=== PATIENT | male | born 1960 | race Caucasian/White ===

== ENCOUNTER → 2023-05-03 12:16 | Outpatient (REF) | payer OTHER, SELFPAY | LOC: PAVMRI 12:16 | PROVIDERS: ATTENDING PHYSICIAN Psychiatry & Neurology Neurology; FAMILY PHYSICIAN Nurse Practitioner Family | DX: M54.50 Low back pain, unspecified (principal); M54.17 Radiculopathy, lumbosacral region | CPT/HCPCS: 72158; A9575 ==

== ENCOUNTER → 2023-05-10 10:16 | Outpatient (REF) | payer OTHER, SELFPAY | LOC: RAD 10:16 | PROVIDERS: ATTENDING PHYSICIAN Psychiatry & Neurology Neurology; FAMILY PHYSICIAN Nurse Practitioner Family | DX: M25.551 Pain in right hip (principal) | CPT/HCPCS: 73523 ==

== ENCOUNTER 2023-08-21 00:16 | Emergency (ER) | payer OTHER, SELFPAY ==
[2023-08-21 00:22] VITALS: BP 154/72
[2023-08-21 00:32] LABS: Glucose - Point of Care 108 mg/dl (70-99)
[2023-08-21 00:39] VITALS: BP 142/68
[2023-08-21 01:00] VITALS: BP 148/72
--- NOTE | 2023-08-21 01:18 | ED.GENMED ---
History of Present Illness
General
Chief Complaint: Blood Sugar Problem
Source: patient
Exam Limitations: none
Time Seen by Provider: 08/21/23 01:00
History of Present Illness
History of Present Illness:
See MDM
Past History
Past History
ED Past Medical History: CVA (suggested right face through leg weakness), GERD, HTN, Hypercholesterolemia, NIDDM, Psychiatric (Depression), Other (Neuropathy in legs) and Other (Cervical and lumbar DJD, chronic neck and back pain)
ED Past Surgical History: Orthopedic (Cervical fusion times 2, most recent done in July 2020, C3-6 laminectomy July 2020)
Social History
Tobacco: Former smoker
Alcohol: Daily
Drug: None
Personal:
Living: with family
Employment: Employed
Family History
Family History: Other (reviewed and Noncontributory)
Phy Exam
Physical Exam
Physical Exam:
See MDM
Course
Orders/Labs/Results
Orders:
Orders
08/21/23 00:25
Accucheck Once [Bedside Glucose Monitoring-ONCE] As Directed
08/21/23 01:43
B-Hydroxybutyrate Urgent
CMP [Comprehensive Metabolic Panel] Urgent
Complete Blood Count/With Diff Urgent
Abnormal Lab Results
08/21/23 08/21/23 08/21/23
00:30 01:40 01:43
RBC 4.05 L 10^6/uL
(4.70-6.10)
Hct 37.6 L %
(39.0-52.0)
MCH 33.1 H pg
(27.0-31.0)
Abs Immat Gran (auto) 0.1 H 10^3/uL
(0-0.05)
Absolute Monos (auto) 1.0 H 10^3/uL
(0.1-0.6)
Immature Gran % 1.2 H %
(0-0.5)
Monocytes % 16.5 H %
(1.7-9.3)
Sodium 128 L mmol/L
(135-145)
Chloride 94 L mmol/L
(98-107)
Carbon Dioxide 21 L mmol/L
(22-30)
Glucose 141 H mg/dl
(70-99)
POC Glucose 108 H mg/dl 148 H mg/dl
(70-99) (70-99)
08/21/23 01:43
08/21/23 01:43
Vital Signs
Initial and Last Documented VS:
Initial Vital Signs
Pulse Resp BP Pulse Ox
64 22 154/72 97
08/21/23 00:22 08/21/23 00:22 08/21/23 00:22 08/21/23 00:22
Last Documented Vital Signs
Pulse Resp BP Pulse Ox
65 16 148/72 96
08/21/23 01:47 08/21/23 01:47 08/21/23 01:00 08/21/23 01:45
MDM/Problems Addressed
Differential Diagnosis Includes:
HPI and MDM Narrative:
63-year-old male presenting for evaluation of low blood sugar. His monitor BP because his blood sugar was less than 40. His woke him up and started giving him sugar. On arrival, his blood sugar is now starting to improve. Patient has been
on glimepiride and Janumet. Because he needs his hemoglobin A1c lower before getting back surgery, his PCP placed him on Lantus. Since then, patient has had intermittent low blood sugar but denies any symptoms
On exam, he is well-appearing nontoxic. His showed me his monitor and his blood sugar is now slowly improving. He has PCP appointment later in the morning
Physical exam
General: Well appearing and non-toxic
HEENT: protecting airway
Neck: appears supple
CV: No evidence of cyanosis
Resp: No accessory muscle use
Abd: Non-distended
Extremities: No deformities
Neuro: alert
Psych: Normal affect
Skin: Intact
Problems Addressed including Acute and Chronic Conditions affecting care:
1. Hypoglycemia
Acuity: acute
Prognosis: stable
Details: Likely in setting of insulin use. Will continue to monitor to ensure that the blood sugar is slowly improving.
Updates
Blood sugar remaining within normal limits. On recheck, blood sugar in the 120s on his monitor. Patient remains well-appearing and nontoxic and denies any complaints. Discussed holding the glimepiride this morning until seeing his PCP at his
11:00 appointment
Differential Diagnosis (but not limited to): Adverse medication reaction, hypoglycemia
Testing considered:
Drug therapy (if applicable): OTC meds, please see d/c instruction regarding Rx drugs
Amount and/or Complexity of Data Reviewed
Clinical info obtained from: Patient
External data reviewed: N/A
Labs I independently reviewed (but not limited to): Mild hyponatremia which states is normal for him
Radiology: N/A
Pulse Ox: not hypoxic
EKG independently reviewed: N/A
Histologic Technician: N/A
Critical Care: N/A
Risk of Complication:
Social Determinants of health: Good social support
Discussed with other providers: N/A
Escalation of Care includes Admit/Obs: After being observed in the Emergency Department, pt stable for discharge.
Occasional wrong word or 'sound a like' substitutions may have occurred due to the inherent limitations of voice recognition software. Read the chart carefully and recognize, using context, where substitutions have occurred.
*Critical Care Note
Total Time (30-74mins, 75-104mins- exclusive of procedures): Not Applicable
ED Attending Note
-
Portions of this chart may have been created with voice recognition software.� Occasional wrong word or��sound alike� substitutions may have occurred due to the inherent limitations of voice recognition software.
Discharge Plan
Departure
Patient Disposition: Home (Routine Discharge)
Date of Disposition: 08/21/23
Time of Disposition: 02:42
Patient with high blood pressure during this ER visit?: Yes
Discharge Problem:
Hypoglycemia, Hyponatremia
Prescriptions:
No Action
esomeprazole magnesium [Nexium] 20 MG capsule,delayed release(DR/EC)
20 mg PO DAILY
tadalafil 5 MG tablet
5 mg PO HS
[id number]-[id number]-bxnuxsy-ast [krill oil] 1 EACH capsule
1 ea PO DAILY
metoprolol succinate 25 MG tablet extended release 24 hr
25 mg PO HS
sitagliptin phos-metformin [Janumet XR] 1 EACH tablet, ER multiphase 24 hr
2 tab PO HS
thiamine HCl (vitamin B1) 100 MG tablet
100 mg PO DAILY
furosemide 40 MG tablet
40 mg PO DAILY Qty: 30 0RF
cyanocobalamin (vitamin B-12) 1,000 MCG tablet
1,000 mcg PO DAILY Qty: 30 0RF
tamsulosin 0.4 MG capsule
0.4 mg PO DAILY Qty: 30 0RF
folic acid 1 MG tablet
1 mg PO DAILY Qty: 30 0RF
glimepiride 2 MG tablet
2 mg PO BID AT 0800,1700 Qty: 60 0RF
Activity Restrictions/Additional Instructions:
Please return for any worsening symptoms.
You may return at any time if you have further concerns.
Please hold the glimepiride this morning and keep the primary care appointment today.
Thank you for choosing [facility].
Interventions
Interventions:
*Risk Screen - Suicide Last Done: 08/21/23 00:22
*Neglect/Abuse Screening Last Done: 08/21/23 00:22
ED- Fall Risk Assessment Last Done: 08/21/23 01:40
ED- Neurological Assessment Last Done: 08/21/23 01:40
Discharge Date and Time
Print Language: PALESTINIAN
[2023-08-21 01:46] VITALS: BMI 29.7
[2023-08-21 01:46] LABS: Glucose - Point of Care 148 mg/dl (70-99)
[2023-08-21 01:50] LABS: % Basophils 0.7 % (0-2); % Eosinophils 1.4 % (0-6); % Immature Granulocytes 1.2 % (0-0.5); % Lymphocytes 21.3 % (20.5-51.1); % Monocytes 16.5 % (1.7-9.3); % Neutrophils 58.9 % (42.2-75.2); Absolute Eosinophils 0.1 10^3/uL (0-0.7); Absolute Immature Granulocytes 0.1 10^3/uL (0-0.05); Absolute Lymphocytes 1.3 10^3/uL (1.2-3.4); Absolute Neutrophils 3.5 10^3/uL (1.4-6.5); Hematocrit 37.6 % (39.0-52.0); Hemoglobin 13.4 g/dL (13.0-18.0); Mean Corp Hgb Conc. 35.6 g/dL (33.0-37.0); Mean Corpuscular Hgb 33.1 pg (27.0-31.0); Mean Corpuscular Volume 92.8 fL (80.0-94.0); Mean Platelet Volume 9.7 fL (7.4-10.4); Nucleated Red Blood Cells % 0 % (-); Platelet Count 136 10^3/uL (130-400); Red Blood Cell Count 4.05 10^6/uL (4.70-6.10); Red Cell Dist. Width 12.8 % (11.5-14.5); White Blood Cell Count 5.9 10^3/uL (4.8-10.8)
[2023-08-21 02:00] VITALS: BP 141/64
[2023-08-21 02:08] LABS: ALT (SGPT) 28 U/L (0-50); AST (SGOT) 40 U/L (17-59); Albumin 4.4 g/dl (3.5-5.0); Alkaline Phosphatase 125 U/L (38-126); Blood Urea Nitrogen 13 mg/dl (9-20); Calcium 9.7 mg/dl (8.4-10.2); Carbon Dioxide 21 mmol/L (22-30); Chloride 94 mmol/L (98-107); Estimated Creatinine Clearance 87 ml/min; Glucose 141 mg/dl (70-99); Potassium 4.5 mmol/L (3.5-5.1); Sodium 128 mmol/L (135-145); Total Bilirubin 1.1 mg/dl (0.2-1.3); eGFR > 60.00
[2023-08-21 02:41] LABS: B-Hydroxybutyrate 0.19 mmol/L (0.02-0.27)
[2023-08-21 02:58] VITALS: BP 160/74
== END 2023-08-21 02:50 | disposition home or self-care (01) ==
LOC: EMR 00:16
PROVIDERS: EMERGENCY PHYSICIAN Student in an Organized Health Care Education/Training Program; FAMILY PHYSICIAN Nurse Practitioner Family
DX: E11.649 Type 2 diabetes mellitus with hypoglycemia without coma (principal); E87.1 Hypo-osmolality and hyponatremia; K21.9 Gastro-esophageal reflux disease without esophagitis; I10 Essential (primary) hypertension; E78.00 Pure hypercholesterolemia, unspecified; F32.A Depression, unspecified; E11.40 Type 2 diabetes mellitus with diabetic neuropathy, unspecified; M47.816 Spondylosis without myelopathy or radiculopathy, lumbar region; M47.812 Spondylosis without myelopathy or radiculopathy, cervical region; G89.29 Other chronic pain; M43.22 Fusion of spine, cervical region; Z87.891 Personal history of nicotine dependence; Z88.8 Allergy status to other drugs, medicaments and biological substances
CPT/HCPCS: 99283; 80053; 82010; 82962; 85025

== ENCOUNTER 2023-08-31 03:16 | Emergency (ER) | payer OTHER, SELFPAY ==
[2023-08-31] VITALS (9 sets, daily range): BP systolic 140–207; BP diastolic 72–95; BMI 31.3
--- NOTE | 2023-08-31 03:53 | ED.GENMED ---
History of Present Illness
<NAYAN Murdock - Last Filed: 08/31/23 06:58>
General
Chief Complaint: Anxiety
Source: patient
Exam Limitations: none
Time Seen by Provider: 08/31/23 03:52
Nursing documentation reviewed up to this point in time: agreed with
History of Present Illness
History of Present Illness:
63 year old male presents for evaluation of anxiety. Pt is undergoing back surgery on 09/02; pain was previously controlled on NSAIDs but due to timeline of upcoming surgery pt is no longer permitted to take NSAIDs. He reports that he took one
hydrocodone/acetaminophen 10/325 tablet which he had left over from a prior surgery at approximately 21:00 on 08/29, and notes that he then awoke at approximately 01:00 on 08/30 with anxiety and a sensation of 'wanting to jump out of my skin.' Pt also
reports intermittent mild dizziness and an 'empty' sensation in the epigastric region of his abdomen. Pt does have a hx of panic attacks per his , but was never prescribed medication. Last panic attack was approximately 3 years ago per . Pt
also believes that he had a similar reaction the last time he took an opiate several years ago. He denies CP, SOB, COWAN, vision change, fever, chills, N/V, diaphoresis, palpitations, and syncope.
Past History
<NAYAN Murdock - Last Filed: 08/31/23 06:58>
Past History
ED Past Medical History: CVA (suggested right face through leg weakness), GERD, HTN, Hypercholesterolemia, NIDDM, Psychiatric (Depression), Other (Neuropathy in legs) and Other (Cervical and lumbar DJD, chronic neck and back pain)
ED Past Surgical History: Orthopedic (Cervical fusion times 2, most recent done in July 2020, C3-6 laminectomy July 2020)
Social History
Tobacco: Former smoker
Alcohol: Daily
Drug: None
Personal:
Living: with family
Employment: Employed
Family History
Family History: Other (reviewed and Noncontributory)
Review of Systems
<NAYAN Murdock - Last Filed: 08/31/23 06:58>
Review of Systems
Allergies reviewed?: Yes
Constitutional: Reports no symptoms
EENT: Reports no symptoms
Respiratory: Reports no symptoms
Cardiac: Reports no symptoms
ABD/GI: Reports other (epigastric discomfort )
: Reports no symptoms
Musculoskeletal: Reports no symptoms
Skin: Reports no symptoms
Neurological: Reports dizzy (intermittent )
Endocrine: Reports no symptoms
Hematologic/Lymphatic: Reports no symptoms
Psychiatric: Reports anxiety
Phy Exam
<NAYAN Murdock - Last Filed: 08/31/23 06:58>
General Physical Exam
General Presentation: well appearing
General age: appears stated age
General Skin: warm
General Habitus: obese
General Mental: anxious
General Hydration: appears well hydrated
Cardiovascular Exam
Cardiovascular Exam: regular rate/rhythm, no edema, no JVD and no murmur
Pulmonary Exam
Pulmonary Exam: lungs clear and no respiratory distress
Gastrointestinal Exam
Gastrointestinal Exam: normal bowel sounds and non tender
Neurological Exam
Neurological Exam: alert and oriented x3
Psychiatric Exam
Psychiatric Exam: anxious
Course
<NAYAN Murdock - Last Filed: 08/31/23 06:58>
Orders/Labs/Results
Orders:
Orders
08/31/23 04:00
Electrocardiogram (*1) Urgent
Reason for Study: Other
Other Reason for Exam: HTN and anxiety
08/31/23 04:04
Urinalysis Reflex To Culture Urgent
08/31/23 04:26
Complete Blood Count/With Diff Urgent
Comprehensive Metabolic Panel Urgent
Troponin I Urgent
08/31/23 04:52
Oxycodone [Roxicodone] 5 mg PO NOW STA
08/31/23 04:53
Ondansetron Orally Disint [Zofran Odt (Orally Disintegrating)] 4 mg PO NOW STA
08/31/23 06:13
0.9% Sodium Chloride 1000 ml [Nss] 1,000 ml IV BOLUS
08/31/23 06:37
BMP [Basic Metabolic Panel] Urgent
Abnormal Lab Results
08/31/23
04:26
RBC 3.96 L 10^6/uL
(4.70-6.10)
Hct 37.1 L %
(39.0-52.0)
MCH 33.8 H pg
(27.0-31.0)
Abs Immat Gran (auto) 0.1 H 10^3/uL
(0-0.05)
Absolute Lymphs (auto) 1.0 L 10^3/uL
(1.2-3.4)
Absolute Monos (auto) 0.8 H 10^3/uL
(0.1-0.6)
Immature Gran % 1.1 H %
(0-0.5)
Lymphocytes % 13.6 L %
(20.5-51.1)
Monocytes % 10.8 H %
(1.7-9.3)
Sodium 122 L mmol/L
(135-145)
Chloride 87 L mmol/L
(98-107)
Glucose 212 H mg/dl
(70-99)
Alkaline Phosphatase 139 H U/L
(38-126)
08/31/23 04:26
Vital Signs
Initial and Last Documented VS:
Initial Vital Signs
Temp Pulse Resp BP Pulse Ox
97.8 F 56 18 207/95 94
08/31/23 03:21 08/31/23 03:21 08/31/23 03:21 08/31/23 03:21 08/31/23 03:21
Last Documented Vital Signs
Temp Pulse Resp BP Pulse Ox
97.8 F 61 20 140/80 99
08/31/23 03:21 08/31/23 06:30 08/31/23 06:30 08/31/23 06:30 08/31/23 06:30
<Antonio Llanos, - Last Filed: 08/31/23 06:13>
Orders/Labs/Results
Orders:
Orders
08/31/23 04:00
Electrocardiogram (*1) Urgent
Reason for Study: Other
Other Reason for Exam: HTN and anxiety
08/31/23 04:04
Urinalysis Reflex To Culture Urgent
08/31/23 04:26
Complete Blood Count/With Diff Urgent
Comprehensive Metabolic Panel Urgent
Troponin I Urgent
08/31/23 04:52
Oxycodone [Roxicodone] 5 mg PO NOW STA
08/31/23 04:53
Ondansetron Orally Disint [Zofran Odt (Orally Disintegrating)] 4 mg PO NOW STA
08/31/23 06:13
0.9% Sodium Chloride 1000 ml [Nss] 1,000 ml IV BOLUS
08/31/23 06:37
BMP [Basic Metabolic Panel] Urgent
Abnormal Lab Results
08/31/23
04:26
RBC 3.96 L 10^6/uL
(4.70-6.10)
Hct 37.1 L %
(39.0-52.0)
MCH 33.8 H pg
(27.0-31.0)
Abs Immat Gran (auto) 0.1 H 10^3/uL
(0-0.05)
Absolute Lymphs (auto) 1.0 L 10^3/uL
(1.2-3.4)
Absolute Monos (auto) 0.8 H 10^3/uL
(0.1-0.6)
Immature Gran % 1.1 H %
(0-0.5)
Lymphocytes % 13.6 L %
(20.5-51.1)
Monocytes % 10.8 H %
(1.7-9.3)
Sodium 122 L mmol/L
(135-145)
Chloride 87 L mmol/L
(98-107)
Glucose 212 H mg/dl
(70-99)
Alkaline Phosphatase 139 H U/L
(38-126)
08/31/23 04:26
Vital Signs
Initial and Last Documented VS:
Initial Vital Signs
Temp Pulse Resp BP Pulse Ox
97.8 F 56 18 207/95 94
08/31/23 03:21 08/31/23 03:21 08/31/23 03:21 08/31/23 03:21 08/31/23 03:21
Last Documented Vital Signs
Temp Pulse Resp BP Pulse Ox
97.8 F 61 20 140/80 99
08/31/23 03:21 08/31/23 06:30 08/31/23 06:30 08/31/23 06:30 08/31/23 06:30
<NAYAN Murdock - Last Filed: 08/31/23 06:58>
MDM/Problems Addressed
Differential Diagnosis Includes:
Medication reaction, anxiety, panic attack, IN.
<NAYAN Murdock - Last Filed: 08/31/23 06:58>
*Critical Care Note
Total Time (30-74mins, 75-104mins- exclusive of procedures): Not Applicable
<NAYAN Murdock - Last Filed: 08/31/23 06:58>
Update Note
Update Note:
05:35 - Troponin I within normal limits
05:43 - Pt reports significant improvement in his sx after receiving oxycodone 5mg and Zofran 4mg. No current anxiety or abdominal pain reported.
06:17 - Spoke with pt regarding sodium of 122. Pt is amenable to receiving fluids.
ED Attending Note
<NAYAN Murdock - Last Filed: 08/31/23 06:58>
-
Portions of this chart may have been created with voice recognition software.� Occasional wrong word or��sound alike� substitutions may have occurred due to the inherent limitations of voice recognition software.
<Antonio Llanos DO - Last Filed: 08/31/23 06:13>
ED Attending Note
Patient seen and examined by attending physician: Yes
I performed the substantive portion of visit, reviewed & personally made and approve the management plan that is documented in note by myself or AKIN.: Yes
ED Attending Note:
Pleasant 63-year-old male presents with anxiety and possible medication reaction. Patient is due to undergo spinal surgery by Dr. Palma on Sunday. He has been off NSAIDs in preparation for the surgery. This is causing an exacerbation of his pain.
He had Vicodin at home. He took 1 and has a sensation that he wants to 'jump out of his skin. He states that the last time he took hydrocodone, he had a similar symptom. He denies any other symptoms at this time. Patient was seen in conjunction
with the PA student. I have reviewed and agree with the history and treatment plan presented. On my independent physical exam, patient is awake, alert, and oriented x3 minimal acute distress. No respiratory distress. Moves all 4 extremities.
Discharge Plan
Departure
Patient with high blood pressure during this ER visit?: Yes
Condition: Good
Discharge Problem:
Essential hypertension, Hyponatremia, Type II diabetes mellitus
Instructions: Anxiety, Adult (DC), BLOOD PRESSURE
Prescriptions:
New
oxycodone 5 mg capsule
5 mg PO Q8H PRN (Reason: Pain) Qty: 14 0RF
No Action
esomeprazole magnesium [Nexium] 20 MG capsule,delayed release(DR/EC)
20 mg PO DAILY
tadalafil 5 MG tablet
5 mg PO HS
[id number]-[id number]-orcpmep-ast [krill oil] 1 EACH capsule
1 ea PO DAILY
metoprolol succinate 25 MG tablet extended release 24 hr
25 mg PO HS
sitagliptin phos-metformin [Janumet XR] 1 EACH tablet, ER multiphase 24 hr
2 tab PO HS
thiamine HCl (vitamin B1) 100 MG tablet
100 mg PO DAILY
furosemide 40 MG tablet
40 mg PO DAILY Qty: 30 0RF
cyanocobalamin (vitamin B-12) 1,000 MCG tablet
1,000 mcg PO DAILY Qty: 30 0RF
tamsulosin 0.4 MG capsule
0.4 mg PO DAILY Qty: 30 0RF
folic acid 1 MG tablet
1 mg PO DAILY Qty: 30 0RF
glimepiride 2 MG tablet
2 mg PO BID AT 0800,1700 Qty: 60 0RF
Referrals:
Antonio Muñoz CRNP [Family Provider] -
Interventions
Interventions:
*Risk Screen - Suicide Last Done: 08/31/23 03:21
*General Assessment Last Done: 08/31/23 03:21
*Neglect/Abuse Screening Last Done: 08/31/23 03:21
ED- Fall Risk Assessment Last Done: 08/31/23 03:21
*ED COVID-19 Vaccine History Last Done: 08/31/23 03:21
ED-Psychological Assessment Last Done: 08/31/23 05:02
Discharge Date and Time
Print Language: LATVIAN
[2023-08-31] MEDS: ZOFRAN ODT (ORALLY DISINTEGRATING) 4 MG PO (04:58)
[2023-08-31] MEDS: ROXICODONE 5 MG PO (04:59)
[2023-08-31 05:52] LABS: Hematocrit 37.1 % (39.0-52.0); Hemoglobin 13.4 g/dL (13.0-18.0); Mean Corp Hgb Conc. 36.1 g/dL (33.0-37.0); Mean Corpuscular Hgb 33.8 pg (27.0-31.0); Mean Corpuscular Volume 93.7 fL (80.0-94.0); Red Blood Cell Count 3.96 10^6/uL (4.70-6.10); Red Cell Dist. Width 11.9 % (11.5-14.5); White Blood Cell Count 7.1 10^3/uL (4.8-10.8)
[2023-08-31 05:53] LABS: Mean Platelet Volume 9.8 fL (7.4-10.4); Platelet Count 136 10^3/uL (130-400)
[2023-08-31 05:54] LABS: % Basophils 0.6 % (0-2); % Eosinophils 1.3 % (0-6); % Immature Granulocytes 1.1 % (0-0.5); % Lymphocytes 13.6 % (20.5-51.1); % Monocytes 10.8 % (1.7-9.3); % Neutrophils 72.6 % (42.2-75.2); Absolute Eosinophils 0.1 10^3/uL (0-0.7); Absolute Immature Granulocytes 0.1 10^3/uL (0-0.05); Absolute Monocytes 0.8 10^3/uL (0.1-0.6); Absolute Neutrophils 5.2 10^3/uL (1.4-6.5); Nucleated Red Blood Cells % 0 % (-)
[2023-08-31 06:02] LABS: ALT (SGPT) 28 U/L (0-50); AST (SGOT) 30 U/L (17-59); Albumin 4.3 g/dl (3.5-5.0); Alkaline Phosphatase 139 U/L (38-126); Blood Urea Nitrogen 11 mg/dl (9-20); Calcium 9.1 mg/dl (8.4-10.2); Carbon Dioxide 26 mmol/L (22-30); Chloride 87 mmol/L (98-107); Estimated Creatinine Clearance 112 ml/min; Glucose 212 mg/dl (70-99); Potassium 4.1 mmol/L (3.5-5.1); Sodium 122 mmol/L (135-145); Total Bilirubin 1.2 mg/dl (0.2-1.3); Total Protein 6.9 g/dl (6.3-8.2); eGFR > 60.00
[2023-08-31 06:07] LABS: Troponin I < 0.012 ng/ml
[2023-08-31] MEDS: NSS 1000 IV (06:41)
[2023-08-31 08:25] LABS: Blood Urea Nitrogen 12 mg/dl (9-20); Calcium 8.9 mg/dl (8.4-10.2); Carbon Dioxide 26 mmol/L (22-30); Chloride 90 mmol/L (98-107); Estimated Creatinine Clearance 112 ml/min; Glucose 206 mg/dl (70-99); Potassium 4.5 mmol/L (3.5-5.1); Sodium 124 mmol/L (135-145); eGFR > 60.00
[2023-08-31 08:26] LABS: Urine Character Clear (Clear); Urine Color Yellow; Urine Leukocyte Negative (Negative); Urine Nitrite Negative (Negative)
[2023-08-31 08:27] LABS: Urine Albumin 1+ (Neg - Trace); Urine Bilirubin Negative (Negative); Urine Glucose 3+ (Negative); Urine Ketone 1+ (Negative); Urine Occult Blood Negative (Negative); Urine Urobilinogen Negative (Neg - 1+)
--- NOTE | 2023-08-31 08:29 | EDRN ---
ER provider Moe notified of repeat Na level result
[2023-08-31 08:39] LABS: Urine Red Blood Cell 0-2 /HPF (0-2); Urine White Cell 0-2 /HPF (0-5)
== END 2023-08-31 09:28 | disposition home or self-care (01) ==
LOC: EMR 03:16
PROVIDERS: EMERGENCY PHYSICIAN Student in an Organized Health Care Education/Training Program; FAMILY PHYSICIAN Nurse Practitioner Family
DX: E87.1 Hypo-osmolality and hyponatremia (principal); I10 Essential (primary) hypertension; E11.9 Type 2 diabetes mellitus without complications
CPT/HCPCS: 99284; 96360; 80048; 80053; 81003; 81015; 84484; 85025; 93005

== ENCOUNTER → 2024-04-24 07:47 | Outpatient (REF) | payer OTHER, SELFPAY | LOC: HWRAD 07:47 | PROVIDERS: ATTENDING PHYSICIAN Nurse Practitioner Family; REFERRING PHYSICIAN Internal Medicine Hematology & Oncology | DX: R79.89 Other specified abnormal findings of blood chemistry (principal) | CPT/HCPCS: 76700 ==

== ENCOUNTER 2025-01-01 07:49 | Outpatient (REF) | payer OTHER, SELFPAY | END 2025-01-01 23:59 | disposition home or self-care (01) | LOC: WOUND 07:49 | PROVIDERS: ATTENDING PHYSICIAN Surgery; FAMILY PHYSICIAN Internal Medicine | DX: E10.621 Type 1 diabetes mellitus with foot ulcer (principal); L97.529 Non-pressure chronic ulcer of other part of left foot with unspecified severity; L03.116 Cellulitis of left lower limb; G62.9 Polyneuropathy, unspecified | CPT/HCPCS: 99205 ==

== ENCOUNTER 2025-01-01 13:04 | Inpatient (IN) | payer OTHER, SELFPAY ==
[2025-01-01 08:29] VITALS: BP 179/81
[2025-01-01 08:47] VITALS: BMI 32.4
--- NOTE | 2025-01-01 08:49 | ED.GENMED ---
History of Present Illness
General
Chief Complaint: Skin Problem
Source: patient
Exam Limitations: none
Time Seen by Provider: 01/01/25 08:36
History of Present Illness
History of Present Illness:
See MDM
Past History
Past History
ED Past Medical History: CVA (suggested right face through leg weakness), GERD, HTN, Hypercholesterolemia, NIDDM, Psychiatric (Depression), Other (Neuropathy in legs) and Other (Cervical and lumbar DJD, chronic neck and back pain)
ED Past Surgical History: Orthopedic (Cervical fusion times 2, most recent done in July 2020, C3-6 laminectomy July 2020)
Social History
Tobacco: Former smoker
Alcohol: Daily
Drug: None
Personal:
Living: with family
Employment: Employed
Family History
Family History: Other (reviewed and Noncontributory)
Phy Exam
Physical Exam
Physical Exam:
See MDM
Course
Orders/Labs/Results
Orders:
Orders
01/01/25 08:48
Vancomycin [Vancocin] 2,000 mg 0.9% Sodium Chloride 500 ml [Nss] 500 ml IV NOW
Foot, Left 3 View [CR Foot - Left Min 3 Views] Urgent
Comment:
Reason For Exam: ulceration and pain to distal foot/toes
01/01/25 09:47
Complete Blood Count/With Diff Urgent
Comprehensive Metabolic Panel Urgent
Lactic Acid Q4H
Comment: CANCEL 2nd LACTIC ACID IF 1st LACTIC ACID IS LESS THAN 2
Magnesium Urgent
Comment: ADD ON
Phosphorus Urgent
Comment: ADD ON
Blood Culture Q30M
ANNETTE Source: Blood/Venous
Specimen Description:
01/01/25 Lunch
2000 calorie (17 carb) Diabetic
At Your Request: Full Participation
Does patient need a safe tray?: No
Fluid Restriction: 1200 mL/day (40 oz)
01/01/25 10:08
Blood Culture Q30M
ANNETTE Source: Blood/Venous
Specimen Description:
01/01/25 12:13
UA [Urinalysis] Routine
Date Specimen was Collected: 01/01/25
Time Specimen was Collected: 12:11
Urine Microscopic Routine
Date Specimen was Collected: 01/01/25
Time Specimen was Collected: 12:11
Urine Osmolality Random [Osmolality, Random Urine] Routine
Date Specimen was Collected: 01/01/25
Time Specimen was Collected: 12:11
Urine Sodium Routine
Date Specimen was Collected: 01/01/25
Time Specimen was Collected: 12:11
01/01/25 12:29
Lower Ext Arterial & GUSTAVO US [US Periph Art LOWER Ext w GUSTAVO] Urgent
Comment:
Reason For Exam: left foot gangrenous toes
01/01/25 12:30
Consult Infectious Disease [INFECTIOUS DISEASE CONSULT] Routine
Consulting Provider: Antonio Cornejo
Was physician already notified: Yes
Consult Vascular Surgery [Vascular Surgery Consult] Routine
Consulting Provider: Ike Hoffman
Was physician already notified: Yes
Cefepime HCl [Maxipime] 2,000 mg IV NOW STA
MetroNIDAZOLE 500 MG/100 ML [Flagyl 500 mg] 100 ml IV NOW
01/01/25 12:33
Legs, left US [US Periph Venous LOWER Ext LT] Urgent
Comment:
Reason For Exam: LLE swelling
01/01/25 12:36
Furosemide [Lasix] 20 mg PO NOW STA
01/01/25 12:38
Add On- LAB Routine
Tests Added?: magnesium, phosphorous
01/01/25 12:39
Admit/Transfer Patient As Directed
Co-Sign Provider:
Level of Care: Inpatient admission
Assign to:: Telemetry
Physician / Group: Chelsea Gray
Diagnosis: left foot cellulitis with gangrenous toes
Reason for Telemetry: Other
Other Reason for Telemetry: electrolye imbalances
Date to Stop Telemetry: 01/03/25
Time to Stop Telemetry: 11:00
Reason for Hospitalization: left foot cellulitis with gangrenous toes
Expected length of stay greater than two midnights?: Yes
ELOS- Estimated Length of Stay in days: 3
I certify the patient meets the requirements for IP care: Yes
01/01/25 12:40
PRN Pain Medication Management As Directed
May give lesser potent ordered pain med per pt: Yes
preference::
Protocol:: Medication orders for pain may be administered in a
manner that supports deferring to patient preference
when the pt is:
- Requesting an ordered lesser potent pain medication.
Least to most potent pain medications are defined
as: acetaminophen < NSAID < tramadol < opioids
(morphine, oxycodone, hydromorphone).
- Requesting a lesser dose of the same medication IF
ORDERED.
- Requesting a less intrusive route of administration
if both routes are prescribed by the provider (PO <
IV).
01/01/25 12:42
Code Status As Directed
Resuscitation Status: Full Code
01/01/25 14:30
0.9% Sodium Chloride [Nss (Preservative Free)] See Protocol IV PRN PRN
Acetaminophen [Tylenol] 650 mg PO Q4HPRN PRN
Bisacodyl [Dulcolax] 10 mg RECTAL [id number] PRN
Dextrose 50%-Water [Dextrose 50% Syringe] 12.5 grams IV [id number] PRN
Docusate W/Senna [Senokot-S] 1 tablet PO BIDPRN PRN
FOLic ACID [Folvite] 1 mg 0.9% Sodium Chloride 50 ml [Nss] 50 ml IV DAILYPRN
Glucagon [GlucaGen] 1 mg IM PRN PRN
Lorazepam [Ativan] 1 mg IV Q1HPRN PRN
Lorazepam [Ativan] 1 mg PO Q2HPRN PRN
Lorazepam [Ativan] 2 mg IV Q1HPRN PRN
Polyethylene Glycol Powder [Miralax] 17 grams PO DAILYPRN PRN
VANCOMYCIN Pharmacy to Dose [VANCOCIN Pharmacy to Dose] 1 each Pharmacy To Prepare [Call Pharmacy To Prepare] 0 ml IV PER PROTOCOL
Weight DAILY
Frequency: Daily
01/01/25 14:30
Case Management Consult Once
Case Management Consult: Other
Comment: Substance abuse counseling
DIETARY IP CONSULT Routine
Reason for Consult: Nutrition support, possible refeeding guidelines
Activity As Directed
Activity Level: As Tolerated
Bedside Glucose Monitoring As Directed
Frequency: AC&HS
Additional Instructions:: Change to q6h if pt on TPN, tube feeding or not eating
Intake/ Output As Directed
Frequency: Per unit guidelines
MSAS SCORE As Directed
MSAS Score 0-4: Repeat MSAS every 2 hours until 0-4 for three consecutive assessments, then every 4 hours x 48
hours.
MSAS Score 5-7: For MILD withdrawl symptoms. Repeat MSAS and RASS every 2 hours
MSAS Score 8-11: For MODERATE withdrawal symptoms. Repeat MSAS and RASS every 1 hour. Consider ICU or IMU
level of care.
MSAS Score > 11: For SEVERE withdrawal symptoms. Repeat MSAS and RASS every 1 hour. Notify provider, consider
ICU level of care.
MSAS Additional Instructions: If no improvement or no decrease in score from severe to moderate within 12
hours, consult psychiatry
MSAS Notify Provider: Notify provider if patient requires more than 10 mg of Lorazepam in eight hour period.
Nursing to Place Non Medication Order As Directed
Physician Order: please TT me when evening Na and K results
Above order entered?: Yes
Nursing to Place Non Medication Order As Directed
Physician Order: please elevated LLE on at least 2 pillows
Above order entered?: Yes
Vital Signs As Directed
Frequency: Per unit guidelines
DX Deep Vein Thrombosis Video Routine
01/01/25 16:30
Insulin Aspart Corrective Low [Novolog Flexpen-Low Resistance] See Protocol SC AC
01/01/25 17:00
Glimepiride [Amaryl] 1 mg PO BID AT 0800,1700
01/01/25 17:44
Potassium Routine
Sodium Routine
01/01/25 18:00
Enoxaparin Sodium [Lovenox] 40 mg SC QPM
Metoprolol Xl [Toprol Xl] 25 mg PO QPM
tadalafil See Dose Instructions PO QPM
01/01/25 20:00
Cefepime HCl [Maxipime] 2,000 mg IV Q8H
Cetirizine HCl [Zyrtec] 10 mg PO BID
MetroNIDAZOLE 250 MG/50 ML [Flagyl 250 mg] 50 ml IV Q8H
Thiamine Injection 200 mg IV Q12
01/02/25 06:00
Comprehensive Metabolic Panel IN AM
Glycohemoglobin (HgbA1c) IN AM
Magnesium IN AM
01/02/25 08:00
FOLic ACID [Folvite] 1 mg PO DAILY
Furosemide [Lasix] 20 mg PO DAILY
Pantoprazole [Protonix] 40 mg PO DAILY
Tamsulosin [Flomax] 0.4 mg PO DAILY
01/03/25 11:00
DC Protocol for Telemetry ONCE
01/04/25 20:00
Thiamine HCl [Vitamin B1] 100 mg PO BID
Abnormal Lab Results
01/01/25 01/01/25
09:47 12:13
RBC 4.69 L 10^6/uL
(4.70-6.10)
MCH 31.8 H pg
(27.0-31.0)
Plt Count 115 L 10^3/uL
(130-400)
Absolute Lymphs (auto) 0.8 L 10^3/uL
(1.2-3.4)
Absolute Monos (auto) 0.8 H 10^3/uL
(0.1-0.6)
Lymphocytes % 12.5 L %
(20.5-51.1)
Monocytes % 12.5 H %
(1.7-9.3)
Sodium 124 L mmol/L
(135-145)
Potassium 5.4 H mmol/L
(3.5-5.1)
Chloride 90 L mmol/L
(98-107)
Glucose 234 H mg/dl
(70-99)
Total Bilirubin 1.4 H mg/dl
(0.2-1.3)
Alkaline Phosphatase 189 H U/L
(38-126)
Total Protein 8.5 H g/dl
(6.3-8.2)
Urine Occult Blood 2+ A
(Negative)
Urine RBC 3-6 A /HPF
(0-2)
Urine Osmolality 267 L mOsm/kg
(300-900)
Urine Sodium 15 L mmol/L
(30-90)
Urine Glucose 4+ A
(Negative)
Urine Albumin 3+ A
(Neg - Trace)
01/01/25 09:47
01/01/25 09:47
Vital Signs
Initial and Last Documented VS:
Initial Vital Signs
Temp Pulse Resp BP
98.4 F 64 16 179/81
01/01/25 08:29 01/01/25 08:29 01/01/25 08:29 01/01/25 08:29
Last Documented Vital Signs
Temp Pulse Resp BP Pulse Ox
97.7 F 100 18 123/81 95
01/02/25 03:49 01/02/25 03:49 01/02/25 03:49 01/02/25 03:49 01/02/25 03:49
MDM/Problems Addressed
Differential Diagnosis Includes:
Note:
CHIEF COMPLAINT(S)
Foot ulcers and possible infection.
HISTORY OF PRESENT ILLNESS
The patient is a 64-year-old male presenting with ulcers on the feet, primarily located on the exterior surfaces of all 5 toes, initially noticed after seeing blood on his socks two weeks ago following work. The patient reports numbness and an
inability to feel the affected areas due to neuropathy. The ulcers are described as blistered with evidence of infection. Pulses in the feet were found to be intact and the skin remains warm, indicating good blood flow, which reduces concern for
critical ischemia. There is no reported pain associated with the ulcers due to neuropath. Patient went to wound care for the first time today and sent to the emergency department for admission
PHYSICAL EXAM
General: Alert, no acute distress.
Skin: Warm, dry.
Head: Normocephalic, atraumatic
Neck: Appears supple, trachea midline.
Eyes, Ears, Nose, Mouth, and Throat: Moist mucous membranes
Cardiovascular: No signs of cyanosis
Respiratory: Respirations are non-labored.
Abdomen: Non-distended
Musculoskeletal: Ulceration and cellulitis noted to all 5 toes and dorsum of foot. DP pulse +2. Decree sensation secondary to neuropathy
Neurological: No focal neurological deficit observed.
Psychiatric: Cooperative, appropriate mood and affect.
PLAN
- Obtain blood work to assess for underlying conditions.
- Perform an X-ray of the affected area to rule out underlying bone infection.
- Initiate antibiotic therapy.
- Plan to admit the patient for overnight observation and treatment.
DIFFERENTIAL DIAGNOSIS
The Differential Diagnosis includes, in no particular order and is not limited to:
- Diabetic foot ulcer
- Peripheral neuropathy-related ulcers
- Venous insufficiency ulcers
- Arterial insufficiency ulcers
- Pressure ulcers
- Cellulitis
- Osteomyelitis
- Necrotizing fasciitis
- Gout-related ulcer
- Blistering skin disorders (e.g., pemphigoid)
SUMMARY OF ENCOUNTER
The patient presented with ulcers on the feet, deemed likely infectious and possibly exacerbated by neuropathy and inappropriate footwear. Findings of warm skin and palpable pulses suggestadequate blood flow, allowing the infection to be a primary
focus of treatment. The decision was made to perform further testing and initiate antibiotics, with a planned inpatient stay for observation and management.
DISPOSITION
Admit for overnight observation and management.
MEDICAL DECISION MAKING
-Complexity of Data Reviewed: Chronic conditions affecting care include neuropathy, foot ulcer (possible peripheral vascular issues).
-Data:
Category 1
- Blood work and x-ray ordered to evaluate for bone infection and systemic impact.
-Risk:
No explicit prescription medication management mentioned; administration of antibiotic therapy suggested during inpatient stay, possibly requiring monitoring.
DIAGNOSIS
- Diabetic foot ulcer, primary diagnosis (ICD-10: L97.919)
- Peripheral neuropathy, contributing factor (ICD-10: G62.9)
- Foot ulcer, infectious (ICD-10: L03.116)
SUMMARY OF ENCOUNTER
The patient presented with swelling of the left foot, likely related to irritation from his boots. Examination revealed evidence of cellulitis. Initial lab testing showed mild hyponatremia and mild hyperkalemia. Despite these findings, the clinical
presentation was not consistent with necrotizing fasciitis, given the normal lactic acid levels and the duration of symptoms. Vancomycin was initiated for treatment, and the plan included admitting the patient for further antibiotics and work-up.
DISPOSITION
Admit for antibiotics and further work-up.
ASSESSMENT
Cellulitis of the left foot likely secondary to irritation from boots and requiring antibiotic therapy.
EMERGENCY TREATMENTS ADMINISTERED
Vancomycin was started.
MANAGEMENT OF THE PATIENTS CARE WAS DISCUSSED WITH
Admitting hospitalist service for continuation of care during hospitalization.
INDEPENDENT REVIEW OF LABS AND INTERPRETATION OF TESTS
My independent review of labs shows mild hyponatremia and mild hyperkalemia. Examination supported by a normal lactic acid level.
MEDICAL DECISION MAKING
-Complexity of Data Reviewed: Chronic conditions affecting care may include peripheral vascular issues. Differential diagnosis considered includes cellulitis.
-Data:
Category 1
Laboratory tests reviewed including electrolytes show mild hyponatremia and mild hyperkalemia.
Category 3
Discussion of management with the admitting hospitalist service regarding swelling in the foot and initiation of antibiotics.
-Risk:
Prescription medication was prescribed and initiated as vancomycin for potential infectious process.
DIAGNOSIS
- Cellulitis of left foot (ICD-10: L03.116)
*Pulse Oximetry
Oxygen Mode of Delivery: Room air
Patient hypoxic: no
*Critical Care Note
Total Time (30-74mins, 75-104mins- exclusive of procedures): Not Applicable
ED Attending Note
-
Portions of this chart may have been created with voice recognition software.� Occasional wrong word or��sound alike� substitutions may have occurred due to the inherent limitations of voice recognition software.
Discharge Plan
Departure
Patient Disposition: Admit
Date of Disposition: 01/01/25
Time of Disposition: 11:33
Admit to: Med/Surg
Presentation/result/management discussed w/ accepting MD/DO: Hospitalist
Discharge Problem:
Cellulitis of foot
Interventions
Interventions:
*Risk Screen - Suicide Last Done: 01/01/25 15:23
*General Assessment Last Done: 01/01/25 08:47
*Neglect/Abuse Screening Last Done: 01/01/25 08:29
*ED- Fall Risk Assessment Last Done: 01/01/25 08:47
*ED COVID-19 Vaccine History Last Done: 01/01/25 15:23
*Nursing Disposition Last Done: 01/01/25 15:12
ED-Skin Assessment Last Done: 01/01/25 08:47
Discharge Date and Time
Discharge Date/Time: 01/01/25 15:12
[2025-01-01] MEDS: VANCOCIN 540 MG IV (10:10)
[2025-01-01 10:11] LABS: ALT (SGPT) 46 U/L (0-50); AST (SGOT) 48 U/L (17-59); Albumin 4.8 g/dl (3.5-5.0); Alkaline Phosphatase 189 U/L (38-126); Blood Urea Nitrogen 15 mg/dl (9-20); Calcium 9.4 mg/dl (8.4-10.2); Carbon Dioxide 26 mmol/L (22-30); Chloride 90 mmol/L (98-107); Estimated Creatinine Clearance 82 ml/min; Glucose 234 mg/dl (70-99); Potassium 5.4 mmol/L (3.5-5.1); Sodium 124 mmol/L (135-145); Total Protein 8.5 g/dl (6.3-8.2); eGFR > 60.00
[2025-01-01 10:17] LABS: Hematocrit 42.7 % (39.0-52.0); Hemoglobin 14.9 g/dL (13.0-18.0); Mean Corp Hgb Conc. 34.9 g/dL (33.0-37.0); Mean Corpuscular Volume 91.0 fL (80.0-94.0); Nucleated Red Blood Cells % 0 % (-); Platelet Count 115 10^3/uL (130-400); Red Cell Dist. Width 12.5 % (11.5-14.5)
--- NOTE | 2025-01-01 12:05 | HPS.HSE ---
Family Physician
-
Family Physician: Ry Agustin
Chief Complaint
-
sent from wound care for left foot infection
History of Present Illness
Mr. Hayes Tobar is a 64 yo man with hx lumbar DDD s/p lumber laminectomy, sciatica, HTN, HLD, GERD, IDDM sent from wound care clinic for evaluation of left food infection.
Patient states that he has had redness and blistering in his left toes since two weeks ago after taking off his boot. He has also had increased swelling in the area. He denies trauma. He saw his PCP yesterday who prescribed antibiotics but he
hasn't taken yet. He denies fevers. He denies pain. He has neuropathy. He saw wound care today who sent him to the ER.
No chest pain. No shortness of breath. No nausea/vomiting/diarrhea. Patient states he drinks plenty of water throughout the day. He took his medications this morning.
He drinks 6 beers/day.
Patient's manages his medications.
Medical History
Past Medical History
Past Medical History: Reports Other (lumbar DDD s/p lumber laminectomy, sciatica, HTN, HLD, GERD, IDDM)
Past Surgical History: Reports Orthopedic
Social History
Tobacco: Former Smoker
Alcohol: Daily (6 beers/day)
Family History
Family History: Not pertinent
Allergies / Home Medications
Allergies reflects when Allergies were last updated in [facility].
Home Medications with original date entered in [facility]
Allergy/Medication List:
Allergies
Allergy/AdvReac Type Severity Reaction Status Date / Time
citalopram Allergy increased Verified 08/31/23 03:21
depression
gabapentin Allergy increased Verified 08/31/23 03:21
depression/si
pregabalin (From Lyrica) Allergy increased Verified 08/31/23 03:21
depression/si
Home Medications
esomeprazole magnesium 20 mg capsule,delayed release (Nexium) 20 mg PO DAILY Gastrointestinal issue 12/20/20
krill 500 mg-omega-3 150 mg-dha 45 mg-epa 75 [id number] capsule (krill oil) 1 cap PO DAILY Supplement 12/20/20
metoprolol succinate 25 mg tablet,extended release 24 hr 25 mg PO QPM Heart disease/condition 12/20/20
tadalafil 5 mg tablet 5 mg PO QPM Urinary issue 12/20/20
magnesium-potassium 85 mg-100 mg capsule 1 cap PO QPM Supplement 08/31/23
potassium chloride 10 mEq capsule,extended release 10 meq PO DAILY Electrolyte Repletion 08/31/23
thiamine HCl (vitamin B1) 250 mg tablet (Vitamin B-1) 250 mg PO DAILY Supplement 08/31/23
cetirizine 10 mg tablet (Zyrtec) 10 mg PO BID Allergies 01/01/25
furosemide 20 mg tablet (Lasix) 20 mg PO DAILY Fluid Retention/Swelling 01/01/25
glimepiride 2 mg tablet 2 mg PO BID AT 0800,1700 Diabetes 01/01/25
ibuprofen 200 mg tablet (Advil) 600 mg PO DAILY mild pain 01/01/25
insulin glargine 100 unit/mL (3 mL) subcutaneous pen (Lantus Solostar U-100 Insulin) 12 unit SC HS Diabetes 01/01/25
mupirocin 2 % topical ointment 1 applic topical BID left foot 01/01/25
sitagliptin phos 50 mg-metformin ER 1,000 mg tablet,extend rel 24h mp (Janumet XR) 2 tab PO QPM Diabetes 01/01/25
tamsulosin 0.4 mg capsule 0.4 mg PO DAILY Urinary Issue 01/01/25
Review of Systems
-
History Source: Patient
A 12 point ROS was completed and negative except as noted: Yes
Physical Exam
Vital Signs
Vital Signs
Temp Pulse Resp BP
98.4 F 64 16 179/81
01/01/25 08:29 01/01/25 08:29 01/01/25 08:29 01/01/25 08:29
Physical Exam
General: No Apparent Distress and Conversant
HEENT: PERRLA
Respiratory: Clear; No Wheezes or Rales
Cardiac: S1/S2 and Regular Rhythm
GI: Soft and Non Tender
Musculoskeletal: Other (LLE with swelling up to mid palumbo; erythema surrounding toes with blistering between toes and necrotic appearing areas; dp pulses 2+ )
Skin: Warm and Dry
Neuro: AO x 3
Psych: Calm
Laboratory Results
-
01/01/25 09:47
01/01/25 09:47
Laboratory Results
Lactic Acid Cancelled 01/01/25 13:00
Total Bilirubin 1.4 mg/dl (0.2-1.3) H 01/01/25 09:47
AST 48 U/L (17-59) 01/01/25 09:47
ALT 46 U/L (0-50) 01/01/25 09:47
Alkaline Phosphatase 189 U/L (38-126) H 01/01/25 09:47
Data Reviewed
-
Diagnostic Radiology: Report Reviewed by me
Lab Data: Labs Reviewed by me
Impression/Plan
-
Mr. Hayes Tobar is a 64 yo man with hx lumbar DDD s/p lumber laminectomy, sciatica, HTN, HLD, GERD, IDDM sent from wound care clinic for evaluation of left food infection.
Triage VS: T 98.4, P 64, RR 16, BP 179/81
LABS: WBC 6, Hg 14.9, PLT 115, Na 124, K+ 5.4, CO2 26, Cr 1.1, Glucose 234, Lactate 1.6, T. Bili 1.4, AST 48, ALt 46, Alki Phos 189
Left Foot X-Ray:
IMPRESSION:
1. No radiographic evidence of osteomyelitis.
2. Moderate arterial vascular calcification.
Left Foot Cellulitis with toe ulcerations and gangrene
-area is not tender; no reported fevers, HDS; patient is not septic
-Arterial US ordered; 2+ dp pulses felt on exam
-LLE venous dopper ordered for swelling up to midshin left leg
-IV Vanc given in ER; add Cefepime/Flagyl
-Vascular surgery consult
-ID consult
-LLE Elevation
Hyponatremia
-patient reports drinking plenty of free water throughout the day. He has mild swelling LE - will give one extra dose of oral lasix now (to also treat K)
-follow up UA, urine sodium, urine osmol
-1200 cc fluid restriction
-repeat Na this evening, may need Renal consult if no improvement
Mild Hyperkalemia
-patient takes daily K supplements - hold
-give extra dose of Lasix now
-repeat K later this evening
Heart Failure preserved EF, chronic
-patient does not appear in acute exacerbation
-continue daily Lasix
IDDM
-Patient takes Lantus 12 units qhs at home, will order 8 units qhs and adjust as needed
-1/2 dose PLUNGER MACHINE OPERATOR Glimepiride 1mg PO BID (takes 2mg BID at home) - adjust as needed
-ISS low
-diabetic diet
Essential HTN
-PLUNGER MACHINE OPERATOR Metoprolol XL
GERD
-PLUNGER MACHINE OPERATOR PPI
DVT PPx Lovenox subQ
FULL CODE
76 minutes spent on patient care
[2025-01-01 12:18] VITALS: BP 179/90
[2025-01-01 12:24] LABS: Urine Character Clear (Clear)
--- NOTE | 2025-01-01 12:45 | CON.VAS ---
Addendum entered and electronically signed by Ike Hoffman MD 01/01/25 16:05:
Seen and examined with BANDAR Levy. Agree with findings as noted below. 64-year-old diabetic male with chronic neuropathy. He notes that he went to the nail salon a few days prior to 2 weeks ago. They cleaned the nails and cut the nails. And
abrasive cleaning. He noted this blistering of the toes of the left foot on the dorsum a couple days following this. These blisters turned into superficial wounds and therefore he was brought here. Denies any significant pain (he has neuropathy
and has no feeling). Denies any prior lower extremity revascularization procedures. No history of peripheral arterial disease that he is aware of. Denies any coronary artery disease. He does have a history of tobacco use he quit 8 years ago
about a pack a day prior.
On exam/he is awake and alert. Head is normocephalic and atraumatic. Eyes nonicteric. Neck is soft without jugular venous distention. Breathing is unlabored. Abdomen is soft, nondistended, nontender. Lower extremity with 2+ femoral, popliteal,
DP pulses palpable bilaterally. Feet are both pink and warm and well-perfused. No rubor. Left dorsal foot with lesions as pictured in wound care notes. Blisters that have somewhat dried out superficially. No formal open ulcerations currently.
No signs of infection.
Noninvasive studies reviewed. No evidence of arterial insufficiency bilaterally.
Plan/ No evidence of arterial insufficiency. Superficial dorsal blister ration/discoloration. There is some that exist between the 1st and 2nd webspace. Based on the appearance, while I think it is less likely, given the fact that it only
happened on 1 foot would favor CTA of the chest/abdomen/pelvis to rule out any atheroembolic cause as this could represent an atheroembolic phenomenon. If this CTA is negative, no further vascular workup at that time. Would recommend podiatry
evaluation and management of the foot toes.
Original Note:
Consultation
Consultation Request
Date/Time Consultation Performed: 01/01/25 12:40
Performing Provider: Dalton
Reason for Consultation: Left foot nonhealing wounds
Medical History
-
Chief Complaint: Left foot nonhealing wounds
History of Present Illness:
64 yo male with PMH significant for CVA, GERD, HTN, hypercholesterolemia, DM, neuropathy presenting to the ER today for worsening left foot wounds for two weeks. Pt states he has neuropathy and cannot feel his toes. He does a foot check daily at the
end of the day and two weeks ago when he took his boots off he found his left foot had blisters on all of the toes. Since then the blisters ruptured and the foot has be come progressively more reddened and swollen. Pt had the wounds scraped by his
real estate developer and then was referred to the ER for IV antibiotics. Vascular consult for nonhealing left foot wounds.
I saw pt at bedside in the ER for exam. Pt resting comfortably in the bed. Palpable PT and DP pulses, foot warm, pink, <2 cap refill. Wounds appear dry/scabbed, no drainage noted, no odor. +2 edema to the foot/ankle. Pt denies any interventions on
his legs in the past. Pt denies issues with wound healing in the past.
Past Medical History
Past Medical History: CVA, GERD, HTN, Hypercholesterolemia, NIDDM, Psychiatric and Other (Cervical and lumbar DJD, chronic neck and back pain, neuropathy)
Past Surgical History: Other (Cervical fusion x2, C3-6 laminectomy July 2020)
Social History
Tobacco: Former Smoker
Alcohol: Daily
Drug: None
Personal:
Living: With Family
Employment: Employed
Family History
Family History: Reviewed & Not Pertinent
Allergies / Home Medications
Allergy/AdvReac Type Severity Reaction Status Date / Time
citalopram Allergy increased Verified 08/31/23 03:21
depression
gabapentin Allergy increased Verified 08/31/23 03:21
depression/si
pregabalin (From Lyrica) Allergy increased Verified 08/31/23 03:21
depression/si
�Medication �Instructions �Recorded �Confirmed �Type
esomeprazole magnesium 20 mg 20 mg PO DAILY Gastrointestinal 12/20/20 01/01/25 History
capsule,delayed release (Nexium) issue
krill 500 mg-omega-3 150 mg-dha 45 1 cap PO DAILY Supplement 12/20/20 01/01/25 History
mg-epa 75 [id number] capsule
(krill oil)
metoprolol succinate 25 mg 25 mg PO QPM Heart 12/20/20 01/01/25 History
tablet,extended release 24 hr disease/condition
tadalafil 5 mg tablet 5 mg PO QPM Urinary issue 12/20/20 01/01/25 History
magnesium-potassium 85 mg-100 mg 1 cap PO QPM Supplement 08/31/23 01/01/25 History
capsule
potassium chloride 10 mEq 10 meq PO DAILY Electrolyte 08/31/23 01/01/25 History
capsule,extended release Repletion
thiamine HCl (vitamin B1) 250 mg 250 mg PO DAILY Supplement 08/31/23 01/01/25 History
tablet (Vitamin B-1)
cetirizine 10 mg tablet (Zyrtec) 10 mg PO BID Allergies 01/01/25 01/01/25 History
furosemide 20 mg tablet (Lasix) 20 mg PO DAILY Fluid 01/01/25 01/01/25 History
Retention/Swelling
glimepiride 2 mg tablet 2 mg PO BID AT 0800,1700 Diabetes 01/01/25 01/01/25 History
ibuprofen 200 mg tablet (Advil) 600 mg PO DAILY mild pain 01/01/25 01/01/25 History
insulin glargine 100 unit/mL (3 12 unit SC HS Diabetes 01/01/25 01/01/25 History
mL) subcutaneous pen (Lantus
Solostar U-100 Insulin)
mupirocin 2 % topical ointment 1 applic topical BID left foot 01/01/25 01/01/25 History
sitagliptin phos 50 mg-metformin 2 tab PO QPM Diabetes 01/01/25 01/01/25 History
ER 1,000 mg tablet,extend rel 24h
mp (Janumet XR)
tamsulosin 0.4 mg capsule 0.4 mg PO DAILY Urinary Issue 01/01/25 01/01/25 History
Review of Systems
-
History Source: Patient
All other systems: Negative unless noted
Constitutional: Reports No Symptoms
EENT: Reports No Symptoms
Respiratory: Reports No Symptoms
Cardiac: Reports No Symptoms
Vascular: Denies Leg Pain / Claudication
Abdomen/GI: Reports No Symptoms
: Reports No Symptoms
Musculoskeletal: Reports Edema
Skin: Reports Other (Left foot all 5 toes with open blistering)
Neurological: Reports No Symptoms
Endocrine: Reports No Symptoms
Physical Exam
Vital Signs
Temp Pulse Resp BP
98.4 F 64 16 179/81
01/01/25 08:29 01/01/25 08:29 01/01/25 08:29 01/01/25 08:29
Lab Results
01/01/25 09:47
Physical Exam
General: No Apparent Distress
HEENT: Normocephalic and Atraumatic
Respiratory: Non Labored Respirations
Cardiac: Negative JVD
GI: Soft and Non Tender
Musculoskeletal: No Clubbing, No Cyanosis and Edema
Skin: Warm and Other (open blisters on all five toes anteriorly )
Neuro: Awake, Alert and Oriented
Psych: Calm
Pulses: Bilateral Dorsalis Pedis: +2 and Bilateral Posterior Tibial: +1
Assessment / Plan
-
64 yo male here with left foot wounds worsening over two weeks
DM, neuropathy
Palpable DP and PT pulses, foot warm and pink
Plan:
Arterial US pending
Recommend wound care, antibiotics
Data Reviewed
-
Labs: Labs Reviewed by me
--- NOTE | 2025-01-01 13:04 | CON.ID ---
Consultation
-
Date/Time Consultation Requested: 01/01/2025 1230
Date/Time Consultation Performed: 01/01/2025 1300
Requesting Provider: Dr. Chelsea Gray
Performing Provider: Dr. Ronit Peterson
Reason for Consultation: Diabetic foot infection
Chief Complaint / Past History
Chief Complaint
Left foot wounds and redness
History of Present Illness
64-year-old male with history of diabetes mellitus, neuropathy, alcohol abuse who presented from wound care center today due to left toe wounds with cellulitis. Patient reports on December 20, when he took off his sock, he noted ruptured blisters on
forefoot/all of his toes. 2 days prior he did have nail cutting and pedicure at a salon. 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 He saw his primary care physician December 23 and was prescribed topical mupirocin. He had follow-up
appointment with PCP December 31 and noted left foot and toes with significant edema and erythema extending up his leg. He was prescribed Bactrim and referred to wound care center. He has not had a chance to fill the Bactrim prescription. He
presented to wound care center today who sent him to the ER. He denies any fevers or chills. He states diabetes under control. He does not have a apparel merchandiser. No prior history of diabetic foot infection.
Past History
Additional Past Medical History:
Diabetes mellitus
Dyslipidemia
Hypertension
HFpEF
GERD
CVA
Depression
Neuropathy
BPH
DJD of cervical and lumbar regions
Chronic neck and back pain
Cervical and lumbar surgery with christel placement
Allergy History:
citalopram Allergy (Verified 08/31/23 03:21)
increased depression
gabapentin Allergy (Verified 08/31/23 03:21)
increased depression/si
pregabalin (From Lyrica) Allergy (Verified 08/31/23 03:21)
increased depression/si
Medications Reviewed: Yes
Current Antibiotics:
Vancomycin
Cefepime
Metronidazole
Social History
Tobacco: Former Smoker
Alcohol: Chronic Alcoholic (6 beers/d)
Drug: None
Personal:
Living: With Family
Employment: Employed (Construction)
Family History
Family History: Not Pertinent
Review of Systems
Review of Systems
General: Negative Fever, Chills or Change in Appetite
HEENT: Negative Sinus Problems or Headache
Cardiovascular: Negative Chest Pain
Respiratory: Negative Dyspnea or Cough
Gasteroenterology: Negative Nausea or Vomiting
Genital / Urological: Negative Dysuria or Flank Pain
Endocrine: Negative Weakness
All systems: All other systems were reviewed and were negative
Vital Signs
Temp Pulse Resp BP
98.4 F 64 16 179/81
01/01/25 08:29 01/01/25 08:29 01/01/25 08:29 01/01/25 08:29
Physical Exam
Physical Exam
Constitutional: No Acute Distress, Comfortable and Obese
Eyes: No Conjunctival Hemorrhage and Sclera Anicteric
Cardiovascular: Regular Rate and S1/S2
Pulmonary: Clear
Gastrointestinal: Soft, Non Tender, Non Distended, Normal Bowel Sounds and Decreased Bowel Sounds
Genito-Urinary: Negative CVA Tenderness
Extremities: Edema (Left foot and leg), Erythema (left forefoot, all toes bright erythema, miler erythema dorsum of foot to palumbo) and Pulses (Strong pedal pulses)
Wound: Other (Dry wounds on left toes 1-5, forefoot, areas with dark brown eschar and necrosis)
Neurological: AO x 3
Lab / Diagnostic Study Results
01/01/25 09:47
Abs Immat Gran (auto) 0.0 10^3/uL (0-0.05) 01/01/25 09:47
Absolute Neuts (auto) 4.2 10^3/uL (1.4-6.5) 01/01/25 09:47
Absolute Lymphs (auto) 0.8 10^3/uL (1.2-3.4) L 01/01/25 09:47
Absolute Monos (auto) 0.8 10^3/uL (0.1-0.6) H 01/01/25 09:47
Absolute Basos (auto) 0.0 10^3/uL (0-0.2) 01/01/25 09:47
Immature Gran % 0.5 % (0-0.5) 01/01/25 09:47
Neutrophils % 70.0 % (42.2-75.2) 01/01/25 09:47
Lymphocytes % 12.5 % (20.5-51.1) L 01/01/25 09:47
Monocytes % 12.5 % (1.7-9.3) H 01/01/25 09:47
Eosinophils % 4.0 % (0-6) 01/01/25 09:47
Basophils % 0.5 % (0-2) 01/01/25 09:47
Lactic Acid Cancelled 01/01/25 13:00
Microbiology Results
Micro:
01/01/25 10:08 Blood Culture - Pending
Blood/Venous
01/01/25 09:47 Blood Culture - Pending
Blood/Venous
01/01/25 Foot XRAY: No radiographic evidence of osteomyelitis. Moderate arterial vascular calcification.
Assessment / Plan
# L foot, LLE cellulitis
# Left toe wounds from ruptured blisters
# Diabetes with neuropathy
- GUSTAVO/arterial duplex no stenosis
- De-escalate Vanco/cefepime/metronidazole to cefazolin 2g IV q8h.
-Podiatry consult placed.
- Local wound care.
Care Review
Plan reviewed with: Physician (Dr. Gray)
[2025-01-01 13:18] LABS: Magnesium 1.8 mg/dl (1.6-2.3)
--- NOTE | 2025-01-01 13:29 | CM ---
Chart reviewed. Unable to complete IA at this time since he is off ED
[2025-01-01 14:49] VITALS: BP 171/86
[2025-01-01] MEDS: LASIX 20 MG PO (14:50)
--- NOTE | 2025-01-01 14:50 | CM ---
Consult received and chart reviewed
Spoke with patient at ED bedside
Lives with in 1 [address]
Independent with ADLs, using cane for ambulation
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
Drives without problem
PCP Dr. Ry Agustin
Pharmacy [facility] in [place]
no VN nor SNF
hx of back surgery 2 years ago
Reviewed [facility] with patient and patient declined to talk with them
Declined to received the card
'I drink 6 light beer daily which seems to bring my blood sugar lower'
Encouraged him to contact with any concern
DCP is to go home
can drive him home
CM will continue to follow up for any dcp needs
[2025-01-01] MEDS: MAXIPIME 2000 MG IV (14:51)
[2025-01-01 15:45] LABS: Glucose - Point of Care 304 mg/dl (70-99)
[2025-01-01] MEDS: FLAGYL 500 MG IV (15:47)
[2025-01-01 16:00] VITALS: BP 202/91; BMI 32.1
[2025-01-01] MEDS: TRANDATE 10 MG IV (16:01)
[2025-01-01] MEDS: FLAGYL 500 MG 100 IV (16:05)
[2025-01-01] MEDS: ANCEF 10 IV (16:06)
[2025-01-01] MEDS: NOVOLOG FLEXPEN-LOW RESISTANCE 4 UNITS SC (16:18)
[2025-01-01] MEDS: TOPROL XL 25 MG PO (17:35)
[2025-01-01] MEDS: AMARYL 1 MG PO (17:35)
[2025-01-01] MEDS: LOVENOX 40 MG SC (17:35)
[2025-01-01 18:28] LABS: Potassium 4.2 mmol/L (3.5-5.1); Sodium 125 mmol/L (135-145)
--- NOTE | 2025-01-01 19:20 | W.PN.UPDATE ---
Addendum entered and electronically signed by Chelsea Gray MD 01/01/25 22:24:
patient hyperglycemic
-resume home Lantus dosing 12 units
-resume Glimepiride dosing 2mg BID starting tomorrow
Addendum entered and electronically signed by Chelsea Gray MD 01/01/25 20:46:
Hypertensive Urgency
-IV Hydralazine PRN
-DESIGN [employer] Metoprolol
-may need addition of new anti-HTN medication
Original Note:
Update Note
Progress Note Update
repeat sodium 125. Patient's urine sodium is low. Case discussed with Dr. Rod, will trial NS @ 60. Will repeat Na at 1AM.
If Na improving then OK to continue fluids. If worse would stop and continue fluid restriction. Goal Na ~ 132 tomorrow morning. If sodium correcting too quickly then IVF rate to be adjusted.
[2025-01-01] MEDS: NSS 1000 IV (20:01)
[2025-01-01] MEDS: ZYRTEC 10 MG PO (20:01)
[2025-01-01] MEDS: THIAMINE INJECTION 200 MG IV (20:01)
[2025-01-01 20:07] VITALS: BP 150/69
[2025-01-01 21:07] LABS: Glucose - Point of Care 320 mg/dl (70-99)
[2025-01-01] MEDS: LANTUS 0.12 UNITS SC (22:40)
[2025-01-01] MEDS: APRESOLINE 10 MG IV (22:56)
[2025-01-01 23:27] VITALS: BP 199/90
[2025-01-02] MEDS: ANCEF 10 IV ×3 (00:40→16:23)
[2025-01-02 01:45] LABS: Sodium 131 mmol/L (135-145)
--- NOTE | 2025-01-02 02:19 | PTCARENOTE ---
Sodium level increased from 125 to 131 this AM. BANDAR Stephens notified and order placed for IV NSS to be reduced from 60 to 40 mL/hr.
--- NOTE | 2025-01-02 03:26 | W.PN.UPDATE ---
Update Note
Progress Note Update
NA 131, will decrease the NSS to 40 CC/hr , no new complaints
[2025-01-02 03:49] VITALS: BP 123/81
[2025-01-02 05:28] VITALS: BMI 31.2
[2025-01-02 07:26] VITALS: BP 204/85
[2025-01-02 07:47] LABS: ALT (SGPT) 34 U/L (0-50); AST (SGOT) 32 U/L (17-59); Albumin 4.0 g/dl (3.5-5.0); Alkaline Phosphatase 149 U/L (38-126); Blood Urea Nitrogen 16 mg/dl (9-20); Calcium 8.9 mg/dl (8.4-10.2); Carbon Dioxide 26 mmol/L (22-30); Chloride 98 mmol/L (98-107); Estimated Creatinine Clearance 80 ml/min; Glucose 257 mg/dl (70-99); Magnesium 1.9 mg/dl (1.6-2.3); Potassium 4.2 mmol/L (3.5-5.1); Sodium 130 mmol/L (135-145); Total Protein 7.2 g/dl (6.3-8.2); eGFR > 60.00
[2025-01-02 07:57] LABS: Glucose - Point of Care 270 mg/dl (70-99)
[2025-01-02 08:26] LABS: Glycohemoglobin (HgbA1c) 9.9 % (4.0-5.9)
[2025-01-02] MEDS: AMARYL 2 MG PO ×2 (08:37→16:23)
[2025-01-02] MEDS: NOVOLOG FLEXPEN-LOW RESISTANCE 3 UNITS SC (08:37)
[2025-01-02] MEDS: FOLVITE 1 MG PO (08:38)
[2025-01-02] MEDS: PROTONIX 40 MG PO (08:38)
[2025-01-02] MEDS: FLOMAX 0.4 MG PO (08:38)
--- NOTE | 2025-01-02 08:38 | W.CS.POD ---
Consult Summary - Podiatry
-
64-year-old male with a history of over 20 years type 2 diabetes he takes oral meds and also insulin for his diabetes, presented to the [facility] for his left digital discoloration and a left foot swelling. Patient states that he went to a
nail salon 4 days ago and also he wears work boots, he states that he developed blisters and eventually became discolored. He never had fever or chills. He denies any calf pain or any pain with walking in his lower legs, he does not see any
pathologist assistant. Currently he is on IV antibiotics per ID , no chest pain no shortness of breath white blood cell count within normal limits he is in no acute distress, no chest pain, no shortness of breath.
Reviewed past medical history medications allergies
Bilateral feet with palpable DP and PT
Loss of protective sensation bilateral feet.
Left foot mild erythema, mild edema noted. Left 1-5 digits with ulcerations which are superficial necrotic changes, no active purulence, no foul odor, no exposed or palpable bone. Right hallux with a minimal drainage noted at the ulcer site.
Right foot with no open lesions, no calluses.
WBC count 6.0
X-rays left foot with no osteomyelitic changes.
Noninvasive vascular studies reviewed,Left leg: GUSTAVO within normal limits measuring 1.27. TBI within normal limits measuring 0.99. Multiphasic flow throughout the leg with no focal or flow-limiting stenosis appreciated. Multiphasic pedal waveforms.
A/P: left foot cellulitis
Left 1-5 digits with superficial necrotic ulcerations
Diabetic small vessel disease
Plan: patient evaluated at bedside
Continue IV antibiotics
Will request vascular surgery consult due to gangrenous changes
Will continue to do local wound care and monitor for any further changes, currently all the necrotic changes seem to be well-demarcated
Topical mupirocin antibiotic and dry gauze dressings once daily
Podiatry will follow
[2025-01-02] MEDS: THIAMINE INJECTION 200 MG IV ×2 (08:39→21:11)
[2025-01-02] MEDS: ZYRTEC 10 MG PO ×2 (08:39→21:11)
[2025-01-02] MEDS: APRESOLINE 10 MG IV (08:40)
--- NOTE | 2025-01-02 10:55 | W.PN.ID1 ---
Date of Service
Date of Service: January 02, 2025
Today's Communication
Continue cefazolin.
Assessment / Plan
# L foot, LLE cellulitis, improving
# Left toe wounds from ruptured blisters
# Diabetes with neuropathy
- GUSTAVO/arterial duplex no stenosis
- For CTA, per Vascular
- Continue cefazolin 2g IV q8h (d2).
-Podiatry following
- Local wound care.
# Conditions present on admission:
Diabetes mellitus
Dyslipidemia
Hypertension
HFpEF
GERD
CVA
Depression
Neuropathy
BPH
DJD of cervical and lumbar regions
Chronic neck and back pain
Cervical and lumbar surgery with christel placement
Chief Complaint
-: Cellulitis
Subjective / Review of Systems
No complaints today.
Vital Signs / Physical Exam
Vital Signs
Vital Signs
Temp Pulse Resp BP Pulse Ox
97.9 F 70 18 204/85 94
01/02/25 07:26 01/02/25 07:26 01/02/25 07:26 01/02/25 07:26 01/02/25 07:26
Physical Exam
Constitutional: No Acute Distress and Comfortable
Eyes: No Conjunctival Hemorrhage and Sclera Anicteric
Cardiovascular: Regular Rate and S1/S2
Pulmonary: Clear
Gastrointestinal: Soft, Non Tender, Non Distended and Normal Bowel Sounds
Extremities: Edema (LLE decreased) and Erythema (Left palumbo erythema resolved. Left forefoot erythema improved.)
Wound: Other (Left forefoot/toe wounds dry)
Neurological: AO x 3
Objective Data
Lab Data
Lab Results
01/01/25 09:47
01/02/25 06:24
Estimated Creat Clear 80 ml/min 01/02/25 06:24
Lactic Acid Cancelled 01/01/25 13:00
Total Bilirubin 0.9 mg/dl (0.2-1.3) 01/02/25 06:24
AST 32 U/L (17-59) 01/02/25 06:24
ALT 34 U/L (0-50) 01/02/25 06:24
Alkaline Phosphatase 149 U/L (38-126) H 01/02/25 06:24
Most recent labs reviewed.
Micro Results:
01/01/25 10:08 Blood Culture - Preliminary
Blood/Venous No Growth in 24 hours- Final report to follow
01/01/25 09:47 Blood Culture - Preliminary
Blood/Venous No Growth in 24 hours- Final report to follow
01/01/25 Foot XRAY: No radiographic evidence of osteomyelitis. Moderate arterial vascular calcification.
--- NOTE | 2025-01-02 11:34 | W.CON.NEPH ---
Consultation
-
Date/Time Consultation Requested: 01/02/2025 730 AM
Date/Time Consultation Performed: 01/02/2025 1130 AM
Requesting Provider: Dr. Ramirez
Performing Provider: Dr. Sims
Reason for Consultation: Hyponatremia
Medical History
-
Chief Complaint: Hyponatremia
History of Present Illness:
The patient is a 64 yo man with hx lumbar DDD s/p lumber laminectomy, sciatica, HTN, HLD, GERD, IDDM(on insulin and glimepiride, edema on lasix sent from wound care clinic for evaluation of left food infection. On presentation to the hospital
he was hyponatremic with a serum sodium level of 124. Our practice was contacted and we are to see him for hyponatremia.
Patient states that he has had redness and blistering in his left toes since two weeks ago after taking off his boot. He has also had increased swelling in the area. He denies trauma. He saw his PCP yesterday who prescribed antibiotics but he
hasn't taken yet. He denies fevers. He denies pain. He has neuropathy. He saw wound care today who sent him to the ER.
No chest pain. No shortness of breath. No nausea/vomiting/diarrhea. Patient states he drinks plenty of water throughout the day. He took his medications this morning.
The patient has a well-known history of alcohol abuse and he drinks 6 beers/day.
Past Medical History
(lumbar DDD s/p lumber laminectomy, sciatica, HTN, HLD, GERD, IDDM)
Social History
Tobacco: Former Smoker
Alcohol: Daily
Family History
no ckd
Family History: Not Pertinent
Allergies / Home Medications
Allergy/AdvReac Type Severity Reaction Status Date / Time
citalopram Allergy increased Verified 08/31/23 03:21
depression
gabapentin Allergy increased Verified 08/31/23 03:21
depression/si
pregabalin (From Lyrica) Allergy increased Verified 08/31/23 03:21
depression/si
�Medication �Instructions �Recorded �Confirmed �Type
esomeprazole magnesium 20 mg 20 mg PO DAILY Gastrointestinal 12/20/20 01/01/25 History
capsule,delayed release (Nexium) issue
krill 500 mg-omega-3 150 mg-dha 45 1 cap PO DAILY Supplement 12/20/20 01/01/25 History
mg-epa 75 [id number] capsule
(krill oil)
metoprolol succinate 25 mg 25 mg PO QPM Heart 12/20/20 01/01/25 History
tablet,extended release 24 hr disease/condition
tadalafil 5 mg tablet 5 mg PO QPM Urinary issue 12/20/20 01/01/25 History
magnesium-potassium 85 mg-100 mg 1 cap PO QPM Supplement 08/31/23 01/01/25 History
capsule
potassium chloride 10 mEq 10 meq PO DAILY Electrolyte 08/31/23 01/01/25 History
capsule,extended release Repletion
thiamine HCl (vitamin B1) 250 mg 250 mg PO DAILY Supplement 08/31/23 01/01/25 History
tablet (Vitamin B-1)
cetirizine 10 mg tablet (Zyrtec) 10 mg PO BID Allergies 01/01/25 01/01/25 History
furosemide 20 mg tablet (Lasix) 20 mg PO DAILY Fluid 01/01/25 01/01/25 History
Retention/Swelling
glimepiride 2 mg tablet 2 mg PO BID AT 0800,1700 Diabetes 01/01/25 01/01/25 History
ibuprofen 200 mg tablet (Advil) 600 mg PO DAILY mild pain 01/01/25 01/01/25 History
insulin glargine 100 unit/mL (3 12 unit SC HS Diabetes 01/01/25 01/01/25 History
mL) subcutaneous pen (Lantus
Solostar U-100 Insulin)
mupirocin 2 % topical ointment 1 applic topical BID left foot 01/01/25 01/01/25 History
sitagliptin phos 50 mg-metformin 2 tab PO QPM Diabetes 01/01/25 01/01/25 History
ER 1,000 mg tablet,extend rel 24h
mp (Janumet XR)
tamsulosin 0.4 mg capsule 0.4 mg PO DAILY Urinary Issue 01/01/25 01/01/25 History
Review of Systems
-
History Source: Patient
All other systems: Negative unless noted
Musculoskeletal: Other (Cellulitic changes of the left foot)
Neurological: Numbness (Neuropathy of lower extremities)
Physical Exam
Vital Signs
Vital Signs
Temp Pulse Resp BP Pulse Ox
97.9 F 70 18 204/85 94
01/02/25 07:26 01/02/25 07:26 01/02/25 07:26 01/02/25 07:26 01/02/25 07:26
Lab Results
01/01/25 09:47
01/02/25 06:24
WBC 6.0 10^3/uL (4.8-10.8) 01/01/25 09:47
RBC 4.69 10^6/uL (4.70-6.10) L 01/01/25 09:47
Hgb 14.9 g/dL (13.0-18.0) 01/01/25 09:47
Hct 42.7 % (39.0-52.0) 01/01/25 09:47
Plt Count 115 10^3/uL (130-400) L 01/01/25 09:47
Sodium 130 mmol/L (135-145) L 01/02/25 06:24
Potassium 4.2 mmol/L (3.5-5.1) 01/02/25 06:24
Chloride 98 mmol/L (98-107) 01/02/25 06:24
Carbon Dioxide 26 mmol/L (22-30) 01/02/25 06:24
BUN 16 mg/dl (9-20) 01/02/25 06:24
Creatinine 1.1 mg/dL (0.7-1.3) 01/02/25 06:24
eGFR > 60.00 01/02/25 06:24
Glucose 257 mg/dl (70-99) H 01/02/25 06:24
Calcium 8.9 mg/dl (8.4-10.2) 01/02/25 06:24
Phosphorus 3.4 mg/dl (2.5-4.5) 01/01/25 09:47
Albumin 4.0 g/dl (3.5-5.0) 01/02/25 06:24
Physical Exam
General: AOx3, Nontoxic , NAD
HEENT: PERRL, EOMI, Anicteric, Conjunctivae Clear, Ear/Nose Intact, Hearing Normal, Oropharynx Clear/Moist, Dentition Intact, Facial Symmetry, Neck Supple, Neck: Trachea Midline, No JVD and No Thyromegaly, no Bruits
Respiratory: Clear to auscultation bilaterally with normal lung exersion
Cardiac: S1/S2 and Regular Rate/Rhythm
Breast: Deferred by me
Abdomen: Soft, Nontender, Nondistended, Normal Bowel Sounds and No Hepatosplenomegaly
Rectal: Deferred by Provider
Genito-urinary: No Costovertebral Tenderness
Extremities: No Clubbing, No Cyanosis and No Edema
Skin: No Rash or open lesions, cellulitic changes along the left lower foot
Neuro: Nonfocal/Grossly Intact, CN II-XII (Intact) and Strength (Musculoskeletal exam 5 out of 5 both upper and lower extremities)
Hematologic/Lymphatic: No Cervical Lymphadenopathy, No Submandibular Lymphadenopathy and No Supraclavicular Lymphadenopathy
Psych: Mood/afflect pleasant, Insight/judgement good and Appropriate
Vascular: plus 1 pedal and radial pulses
Data Reviewed
-
Radiology: Report Reviewed by me (Foot x-ray reviewed; no evidence of osteomyelitis moderate arterial vascular calcification)
Labs: Labs Reviewed by me (bmp, UA, urine osm, urine sodium)
Old Records: Reviewed (sodium 124 on 08/31/23)
Assessment/Plan
-
Impression:
Hyponatremia
Left lower extremity cellulitis
Diabetes mellitus
Dyslipidemia
Hypertension
HFpEF
GERD
CVA
Depression
Neuropathy
BPH
DJD of cervical and lumbar regions
Chronic neck and back pain
Cervical and lumbar surgery with christel placement
Plan:
Hyponatremia:
- Maintain fluid restriction
- Serum sodium corrected to 131appropirately after lasix administration and FR, sodium actually higher given pseudohyponatremia component from hyperglycemia
- NSAIDs can inhibit free water excretion and henceforth exacerbate hyponatremia
- Okay to maintain oral Lasix
HTN:
- Maintain metoprolol for hypertension control
- As blood pressure remains elevated I will add Procardia 30 mg twice daily
- IV as needed hydralazine as needed
--- NOTE | 2025-01-02 11:35 | WOUNDNOTE ---
L DORSAL FOOT AND TOES
--- NOTE | 2025-01-02 11:36 | WOUNDNOTE ---
L PLANTAR AND 5TH TOE TIP
--- NOTE | 2025-01-02 11:36 | WOUNDNOTE ---
L GREAT TOE AND MEDIAL 2ND TOE
--- NOTE | 2025-01-02 11:38 | WOUNDNOTE ---
L GREAT AND 2ND TOE DORSAL AFTER CLEANING
[2025-01-02 11:40] VITALS: BP 182/78
--- NOTE | 2025-01-02 11:40 | WOUNDNOTE ---
[facility] RN note: Patient admitted with cellulitis of L foot.
See H&P for complete history. Lives with , works in construction.
PMH: Mr. Hayes Tobar is a 64 yo man with hx lumbar DDD s/p lumber laminectomy, sciatica, HTN, HLD, GERD, IDDM sent from wound care clinic for evaluation of left food infection.
Wound Location and type/assessment: Patient admitted with:L dorsal toes with full thickness ulcers, weeping eschar and resolving cellulitis. Patient confirmed his toes blistered a few days after getting nails trimmed at a nail salon. Wears
construction boots when working states patient. Assessed patient along with Dr. Ramirez at bedside. L great toe and medial 2nd toe with full thickness ulcers, small weeping serous, no odor. L 5th toe tip with intact blood blister. + palpable
pedal pulses, arterial studies done, L foot TBI 0.99. Vascular on consult. X ray of L foot was negative for osteomyelitis. Podiatry saw this morning and ordered Mupirocin, no surgical intervention to be done at this time. R foot and heels intact.
Nurse reports sacrum intact.
Appetite: Good, Hgb A1C pending.
Pressure redistribution devices in place: On Accumax, ambulates to BR using cane.
Plan: Applied mupirocin that was ordered by Podiatry and confirmed local wound care with Dr. Luz.
Updated care plan, nurse Ave and will follow as needed.
Note to case management of equipment requested for discharge: none if family can help patient.
Recommend follow up with [facility].
[2025-01-02 11:56] LABS: Glucose - Point of Care 318 mg/dl (70-99)
[2025-01-02] MEDS: NOVOLOG FLEXPEN-LOW RESISTANCE 4 UNITS SC (12:04)
--- NOTE | 2025-01-02 12:12 | CM ---
CM reviewed chart, care ongoing.
Patient on IV antibiotics.
Podiatry following, vascular surgery consulted.
[facility]ES previously offered, declined.
CM will continue to follow.
Plan; home no needs, watch for wound, IV antibiotic needs
--- NOTE | 2025-01-02 12:53 | W.PN.UPDATE ---
Update Note
Progress Note Update
CT scan from yesterday reviewed. In the infrarenal abdominal aorta there is an area of focal chronic either plaque dissection or intramural hematoma. It is a chronic process with calcification of the wall/septum. Does not cause any significant
flow limitation. Not a typical shaggy plaque to cause an atheroembolic problem, but could potentially cause some atheroembolism. I doubt that this is the cause of foot problems, but cannot be sure. Would recommend antiplatelet therapy for this
(81 mg aspirin daily). No indication for any intervention.
[2025-01-02] MEDS: PROCARDIA XL (EXTENDED RELEASE) 30 MG PO ×2 (12:56→21:10)
[2025-01-02 15:17] VITALS: BP 139/76
--- NOTE | 2025-01-02 15:37 | W.PN.HOSP.TC ---
Today's Communication/Plan
-
Assessment / Plan
Assessment / Plan
General: No Apparent Distress, Comfortable and Conversant
HEENT: NormoCephalic, Moist mucous membranes, Atraumatic
Respiratory: Clear and Non Labored Respirations
Cardiac: S1/S2 and Regular Rhythm; No Rub or Gallop
GI: Soft, Non Tender, Non Distended and Normal Bowel Sounds
Musculoskeletal: No Edema, left foot wound
Skin: Warm and dry, left foot with multiple wounds involving the toes with surrounding erythema
: NO Valencia
Neuro: Awake, Alert, Nonfocal/grossly intact
Psych: Calm and Intact Judgment/Insight
Mr. Tobar is a 64-year-old male with a medical history of hypertension, HFpEF, IDDM, lumbar disc disease (status post laminectomy), and sciatica who presented with left foot redness and swelling. He went to a nail salon 4 days prior to arrival
for a pedicure and apparently his foot wounds have been progressive since that time. He has now developed discolored blisters and surrounding erythema involving all of his toes on the left foot.
Left foot wound:
- Podiatry following, continue local wound care
- Evaluated by vascular surgery, CT angiography shows some infrarenal aortic atherosclerotic disease with low likelihood of atheroembolic event that would be contributing to left foot wound, recommend antiplatelet therapy with low-dose aspirin, no
acute intervention indicated
- Continue antibiotics with Ancef for now, appreciate ID recommendations
Hyponatremia:
- Resolving with IV fluids, Lasix, and fluid restriction
- No neurologic abnormalities, continue to monitor
- Appreciate nephrology guidance
Hyperkalemia:
- Mild, now resolved
- Monitor
- Hold home potassium supplements
Hypertension:
- Nifedipine 30 mg p.o. twice daily added by nephrology
- Monitor and adjust regimen as needed
- IV hydralazine as needed
Chronic HFpEF:
- Appears currently compensated
- Continue beta-blockade with home metoprolol succinate 25 mg p.o. daily
- Afterload reduction with nifedipine added this admission
- Continue p.o. Lasix
IDDM:
- Uncontrolled
- Continue long-acting regimen with home Lantus 12 units at night, adjust regimen as needed
- Additional sliding scale as needed
- Continue home glimepiride 2 mg twice daily
- Hemoglobin A1c 9.9%
- Diabetic diet
DVT prophylaxis: Lovenox
CODE STATUS: Full code
Anticipated Discharge: 24 - 48 hours
Subjective/Interval History
-
Date of Service: January 02, 2025
Patient was seen and examined at bedside this morning. Improvement in redness and swelling of left foot. Remains on IV antibiotics. Awaiting CT imaging.
Objective Data
-
Labs:
Laboratory Results
01/02/25
06:24
Sodium 130 L
Potassium 4.2
Chloride 98
Carbon Dioxide 26
BUN 16
Creatinine 1.1
Glucose 257 H
Calcium 8.9
Total Bilirubin 0.9
AST 32
ALT 34
Alkaline Phosphatase 149 H
Vital Signs:
Vital Signs
Temp Pulse Resp BP Pulse Ox
97.8 F 96 18 139/76 95
01/02/25 15:17 01/02/25 15:17 01/02/25 15:17 01/02/25 15:17 01/02/25 15:17
I&O
01/01/25 01/02/25 01/03/25
06:59 06:59 06:59
Intake Total 1220 / 1220
Balance 1220 / 1220
Review of Systems
-
History Source: Patient
All other systems: Reviewed and negative
Musculoskeletal: Reports Joint Swelling (Left foot redness and swelling)
Physical Exam
-
General: No Apparent Distress
[2025-01-02] MEDS: NSS 1000 IV (16:24)
[2025-01-02 17:04] LABS: Glucose - Point of Care 393 mg/dl (70-99)
[2025-01-02] MEDS: TOPROL XL 25 MG PO (17:05)
[2025-01-02] MEDS: LOVENOX 40 MG SC (17:05)
[2025-01-02] MEDS: NOVOLOG FLEXPEN-LOW RESISTANCE 5 UNITS SC (17:05)
[2025-01-02 19:11] VITALS: BP 158/73
[2025-01-02 20:44] LABS: Glucose - Point of Care 360 mg/dl (70-99)
[2025-01-02] MEDS: LANTUS 0.12 UNITS SC (21:12)
[2025-01-02] MEDS: FLUSH (NSS) 1 FLUSH IV (21:16)
[2025-01-02] MEDS: BACTROBAN 2% OINTMENT 1 APPLIC TOPICAL (21:29)
[2025-01-02 23:30] VITALS: BP 149/70
[2025-01-03] MEDS: FLUSH (NSS) 1 FLUSH IV (00:11)
[2025-01-03] MEDS: ANCEF 10 IV ×2 (00:11→07:37)
[2025-01-03 03:04] VITALS: BP 154/65
[2025-01-03 06:00] VITALS: BMI 31.2
[2025-01-03 07:12] VITALS: BP 175/84
[2025-01-03 07:34] LABS: Glucose - Point of Care 289 mg/dl (70-99)
[2025-01-03] MEDS: NOVOLOG FLEXPEN-LOW RESISTANCE 3 UNITS SC (07:37)
[2025-01-03] MEDS: BACTROBAN 2% OINTMENT 1 APPLIC TOPICAL (07:38)
[2025-01-03] MEDS: ZYRTEC 10 MG PO (07:38)
[2025-01-03] MEDS: PROTONIX 40 MG PO (07:38)
[2025-01-03] MEDS: AMARYL 2 MG PO (07:38)
[2025-01-03] MEDS: FLOMAX 0.4 MG PO (07:38)
[2025-01-03] MEDS: FOLVITE 1 MG PO (07:39)
[2025-01-03] MEDS: THIAMINE INJECTION 200 MG IV (07:39)
[2025-01-03] MEDS: PROCARDIA XL (EXTENDED RELEASE) 30 MG PO (07:40)
[2025-01-03 08:31] LABS: Blood Urea Nitrogen 12 mg/dl (9-20); Calcium 9.2 mg/dl (8.4-10.2); Carbon Dioxide 29 mmol/L (22-30); Chloride 97 mmol/L (98-107); Estimated Creatinine Clearance 80 ml/min; Glucose 277 mg/dl (70-99); Potassium 4.2 mmol/L (3.5-5.1); Sodium 131 mmol/L (135-145); eGFR > 60.00
[2025-01-03 11:11] VITALS: BP 149/76
--- NOTE | 2025-01-03 11:13 | W.PN.ID1 ---
Date of Service
Date of Service: January 03, 2025
Today's Communication
See below
Assessment / Plan
# L foot, LLE cellulitis, improving
# Left toe wounds from ruptured blisters
# Diabetes with neuropathy
- GUSTAVO/arterial duplex no stenosis
- CTA no significant stenosis. No intervention per Vascular.
- Can transition cefazolin 2g IV q8h (d3) to cephalexin 500mg po qid through 01/09/25
- Local wound care.
# Cirrhosis on CT
# Alcohol use disorder
- Informed pt of CT finding.
- Discussed abstinence from alcohol
- Follow-up with PCP and/or GI
# Conditions present on admission:
Diabetes mellitus
Dyslipidemia
Hypertension
HFpEF
GERD
CVA
Depression
Neuropathy
BPH
DJD of cervical and lumbar regions
Chronic neck and back pain
Cervical and lumbar surgery with christel placement
Chief Complaint
-: Cellulitis
Subjective / Review of Systems
Foot significantly improved.
Vital Signs / Physical Exam
Vital Signs
Vital Signs
Temp Pulse Resp BP Pulse Ox
97.7 F 78 16 149/76 92
01/03/25 11:11 01/03/25 11:11 01/03/25 11:11 01/03/25 11:11 01/03/25 11:11
Physical Exam
Constitutional: No Acute Distress and Comfortable
Eyes: No Conjunctival Hemorrhage and Sclera Anicteric
Cardiovascular: Regular Rate and S1/S2
Pulmonary: Clear
Gastrointestinal: Soft, Non Tender, Non Distended and Normal Bowel Sounds
Extremities: Negative Erythema (Left palumbo erythema resolved. Left forefoot erythema improved.)
Wound: Other (Left forefoot/toe erythema improved, wounds dry)
Neurological: AO x 3
Objective Data
Lab Data
Lab Results
01/01/25 09:47
01/03/25 07:16
Estimated Creat Clear 80 ml/min 01/03/25 07:16
Lactic Acid Cancelled 01/01/25 13:00
Total Bilirubin 0.9 mg/dl (0.2-1.3) 01/02/25 06:24
AST 32 U/L (17-59) 01/02/25 06:24
ALT 34 U/L (0-50) 01/02/25 06:24
Alkaline Phosphatase 149 U/L (38-126) H 01/02/25 06:24
Most recent labs reviewed.
Micro Results:
01/01/25 10:08 Blood Culture - Preliminary
Blood/Venous No Growth in 48 hours- Final report to follow
01/01/25 09:47 Blood Culture - Preliminary
Blood/Venous No Growth in 48 hours- Final report to follow
01/01/25 Foot XRAY: No radiographic evidence of osteomyelitis. Moderate arterial vascular calcification.
Care Review
Plan reviewed with: Physician (Dr. Ramirez)
[2025-01-03 11:53] LABS: Glucose - Point of Care 338 mg/dl (70-99)
[2025-01-03] MEDS: NOVOLOG FLEXPEN-LOW RESISTANCE 4 UNITS SC (12:06)
[2025-01-03] MEDS: NOVOLOG FLEXPEN 2 UNITS SC (12:06)
--- NOTE | 2025-01-03 12:07 | W.PN.POD ---
Today's Communication
Today's Communication
Patient stable from podiatry to discharge
Assessment / Plan
-
A/P: left foot cellulitis - resolving
Left 1-5 digits with superficial necrotic ulcerations - healing well
Diabetic small vessel disease
Plan: patient evaluated at bedside
Appreciate vascular consult
Agree with transition oral abx
Will cont with Alginate in between the toes, Mupirocin abx and dry gauze and Sina,with mild vale bandage compression once daily.
Discussed to maintain blood sugars in good control and keep the left foot elevated when sitting down
Discussed with his daughter at her at his side at bedside patient can ambulate without any restrictions with surgical shoe to left foot
Patient will follow-up with me in my office after discharge
Subjective
Chief Complaint
Left foot cellulitis and necrotic ulcerations to all digits 1-5
Subjective
Patient seen at bedside, improving swelling and redness to the left foot. Patient denies any fever chills. Patient with no new complaints and he feels well
Objective
Temp Pulse Resp BP Pulse Ox
97.7 F 78 16 149/76 92
01/03/25 11:11 01/03/25 11:11 01/03/25 11:11 01/03/25 11:11 01/03/25 11:11
01/01/25 09:47
01/03/25 07:16
Vital Signs and Lab results were reviewed.
Bilateral feet with palpable DP and PT
Loss of protective sensation bilateral feet.
Left foot improving erythema, improved edema noted. Left 1-5 digits with ulcerations which are superficial necrotic changes, no active purulence, no foul odor, no exposed or palpable bone.
left hallux with a minimal drainage noted at the ulcer site.
Right foot with no open lesions, no calluses.
--- NOTE | 2025-01-03 13:25 | W.DCSUMMARY ---
Discharge Summary
Discharge Data
Date of Admission: 01/01/25
Date of Discharge: 01/03/25
Total time spent discharging patient (in min): 52
-
Pending Results: No
Hospital Course
Mr. Tobar is a 64-year-old male with a medical history of hypertension, HFpEF, IDDM, lumbar disc disease (status post laminectomy), and sciatica who presented with left foot redness and swelling. He went to a nail salon 4 days prior to arrival
for a pedicure and apparently his foot wounds have been progressive since that time. He has now developed discolored blisters and surrounding erythema involving all of his toes on the left foot. He was started on IV antibiotics and admitted for
further evaluation management.
His foot wound has significantly improved. He was evaluated by podiatry and vascular surgery. Lower extremity pulses were intact. CT angiography was obtained which showed some infrarenal aortic atherosclerotic disease with low likelihood of
atheroembolic event that could be contributing to his left foot wound. He was continued on antiplatelet therapy with low-dose aspirin. No surgical intervention was indicated. His antibiotics were able to be transitioned to oral cephalexin to be
continued through 01/09/2025 per infectious disease recommendations.
His blood glucose was uncontrolled at the time of admission. His hemoglobin A1c was 9.9%. His home long-acting insulin dose was increased. He will need follow-up with his primary care physician for ongoing blood glucose monitoring and medication
adjustments as needed.
He was evaluated by nephrology due to hyponatremia with a serum sodium of 124 at time of admission. His hyponatremia appears chronic. He was started on a fluid restriction and instructed to avoid NSAID use when possible. His serum sodium slightly
improved to 131 at the time of discharge. He had a mild hyperkalemia at the time of admission with a serum potassium of 5.1. His home potassium supplementation was held and his serum potassium improved. He was also started on nifedipine for
better blood pressure control. He should follow-up with his primary care physician for ongoing blood pressure monitoring and medication adjustments as needed.
General: No Apparent Distress, Comfortable and Conversant
HEENT: NormoCephalic, Moist mucous membranes, Atraumatic
Respiratory: Clear and Non Labored Respirations
Cardiac: S1/S2 and Regular Rhythm; No Rub or Gallop
GI: Soft, Non Tender, Non Distended and Normal Bowel Sounds
Musculoskeletal: No Edema, left foot wound
Skin: Warm and dry, improving left foot erythema, wound dressing CDI
: NO Valencia
Neuro: Awake, Alert, Nonfocal/grossly intact
Psych: Calm and cooperative
Discharge Plan
-
Patient Disposition: Home (Routine Discharge)
Discharge Diagnosis/Procedures: Infected left foot wound, uncontrolled diabetes mellitus
Diet: Diabetic, Carb Controlled
Activity Restrictions/Additional Instructions:
Wound Care Instructions
L foot/toes: clean with soap and water, Mupirocin to ulcers followed by adaptic, folded gauze and regina daily. Cut pieces of alginate btw toes to keep dry, change when soiled.
Follow up With facility assistant
You were admitted for treatment of your infected left foot wound. Your wound significant improved with IV antibiotics and local wound care. You were evaluated by podiatry and vascular surgery and no surgical intervention was required. The
vascular surgery team did recommend that you continue antiplatelet therapy with low-dose aspirin daily. You will be continued on oral antibiotics after discharge through 01/09/2025, per the recommendations of the infectious disease team. Your
insulin regimen was adjusted for better blood glucose control in order to optimize healing of your foot wound and to avoid further diabetes related complications. You will need to continue local wound care and follow-up closely with podiatry. You
were started on a medication called nifedipine for better blood pressure control. You were evaluated by nephrology during hospitalization due to low blood sodium level (called hyponatremia). You are started on a fluid restriction and recommended
to avoid NSAIDs such as Advil and Motrin which can worsen hyponatremia. Alcohol use can also worsen hyponatremia. Your blood sodium levels have improved. You should follow-up with your primary care physician for repeat blood work to monitor your
electrolyte levels and for medication adjustments as needed.
Referrals:
Ry Agustin DO [Family Provider, Internal Medicine]
Bob Luz DPM [Specified Professional Personl, Podiatry]
Prescriptions:
New
nifedipine 30 mg Tablet Extended Release
30 mg PO BID Qty: 60 0RF
folic acid 1 mg Tablet
1 mg PO DAILY Qty: 30 0RF
cephalexin 500 mg tablet
500 mg PO QID 7 Days Qty: 28 0RF
aspirin 81 mg capsule
81 mg PO DAILY Qty: 60 0RF
Continued
esomeprazole magnesium [Nexium] 20 MG capsule,delayed release(DR/EC)
20 mg PO DAILY
tadalafil 5 MG tablet
5 mg PO QPM
krill oil 1 EACH capsule
1 cap PO DAILY
metoprolol succinate 25 MG tablet extended release 24 hr
25 mg PO QPM
thiamine HCl (vitamin B1) [Vitamin B-1] 250 mg Tablet
250 mg PO DAILY
mupirocin 2 % Ointment
1 applic TOPICAL BID
furosemide [Lasix] 20 mg Tablet
20 mg PO DAILY
Janumet XR 50-1,000 mg Tablet, Er Multiphase 24 Hr
2 tab PO QPM
glimepiride 2 MG tablet
2 mg PO BID AT 0800,1700
tamsulosin 0.4 MG capsule
0.4 mg PO DAILY
cetirizine [Zyrtec] 10 mg Tablet
10 mg PO BID
Changed
insulin glargine [Lantus Solostar U-100 Insulin] 100 unit/mL (3 mL) Insulin Pen
15 unit SC HS Qty: 15 0RF
Held
potassium chloride 10 mEq Capsule, Extended Release
10 meq PO DAILY
Hold Instructions: Hold until follow-up with your PCP and repeat blood work to monitor your electrolytes
magnesium-potassium 85-100 mg Capsule
1 cap PO QPM
Hold Instructions: Hold until follow-up with your primary care physician and repeat lab work to monitor electrolytes
Discontinued
ibuprofen [Advil] 200 mg Tablet
600 mg PO DAILY
Discharge Orders:
Discharge Patient (As Directed); Ordered 01/03/25
Ordered By: Gaurav Ramirez
Discharge Date and Time
Print Language: LATVIAN
--- NOTE | 2025-01-03 13:38 | CM ---
patient seen at bedside with
discharge today
CM consult completed VN
options reviewed, prefer [facility]
referral placed in [facility], notified Brittney liaison [facility]
IMM explained & signed. In chart
PLAN: Home with [facility]
to transport
[2025-01-03 14:37] VITALS: BP 169/82
== END 2025-01-03 15:43 | disposition home health service (06) | DRG 300 ==
LOC: 4 WEST ACU 13:04
PROVIDERS: ADMITTING PHYSICIAN Student in an Organized Health Care Education/Training Program; ATTENDING PHYSICIAN Internal Medicine; CONSULT PHYSICIAN Podiatrist Foot & Ankle Surgery; EMERGENCY PHYSICIAN Student in an Organized Health Care Education/Training Program; FAMILY PHYSICIAN Internal Medicine; OTHER PHYSICIAN Internal Medicine Infectious Disease; OTHER PHYSICIAN Specialist; OTHER PHYSICIAN Surgery Vascular Surgery
DX: E11.52 Type 2 diabetes mellitus with diabetic peripheral angiopathy with gangrene (principal); E87.1 Hypo-osmolality and hyponatremia; I50.32 Chronic diastolic (congestive) heart failure; L03.116 Cellulitis of left lower limb; K21.9 Gastro-esophageal reflux disease without esophagitis; I11.0 Hypertensive heart disease with heart failure; E78.00 Pure hypercholesterolemia, unspecified; F32.A Depression, unspecified; M47.816 Spondylosis without myelopathy or radiculopathy, lumbar region; E11.40 Type 2 diabetes mellitus with diabetic neuropathy, unspecified; M54.9 Dorsalgia, unspecified; M47.812 Spondylosis without myelopathy or radiculopathy, cervical region; G89.29 Other chronic pain; E11.621 Type 2 diabetes mellitus with foot ulcer; E87.5 Hyperkalemia; M51.369 Other intervertebral disc degeneration, lumbar region without mention of lumbar back pain or lower extremity pain; E11.65 Type 2 diabetes mellitus with hyperglycemia; I16.0 Hypertensive urgency; F10.10 Alcohol abuse, uncomplicated; K74.60 Unspecified cirrhosis of liver; N40.0 Benign prostatic hyperplasia without lower urinary tract symptoms; L97.529 Non-pressure chronic ulcer of other part of left foot with unspecified severity; Z88.8 Allergy status to other drugs, medicaments and biological substances; Z79.4 Long term (current) use of insulin; Z79.84 Long term (current) use of oral hypoglycemic drugs; Z79.899 Other long term (current) drug therapy; Z87.891 Personal history of nicotine dependence; Z98.1 Arthrodesis status; Z86.73 Personal history of transient ischemic attack (TIA), and cerebral infarction without residual deficits
CPT/HCPCS: 73630; 76380; 80048; 80053; 81003; 81015; 82962; 83036; 83605; 83735; 83935; 84100; 84132; 84295; 84300; 85025; 87040; 93922; 93925; 93971; 96365; 96366; 96375; 99284